=== PATIENT | female | born 1955 | race Caucasian/White ===

== ENCOUNTER 2017-10-03 18:01 | Inpatient (IN) ==
[~2017-10-03 18:01] MED LIST: Gadobutrol PF 7.5 MMOL/7.5 ML Vial (for RAD) IV.SIG ONE
[2017-10-03] MEDS ORDERED: Sodium Chlor 0.9% Inj 500 ML IV.SIG ONE (18:14)
[2017-10-03] MEDS ORDERED: Sod Chloride 0.9% Inj 1,000 ML IV.SIG ONE ×2 (18:20→18:50)
--- NOTE | 2017-10-03 18:26 | ED ---
HPI General Chief complaint: Syncope Stated complaint: Fall injury Time Seen by Provider: 10/03/17 18:13 History of Present Illness HPI narrative: 62-year-old female is brought to the emergency department by EMS for evaluation of syncope and fall. Per EMS report the patient was sitting in her walker at the [employer] bus stop when she suddenly fell forward onto the ground landing on her forehead. She is complaining of neck pain and arm pain. The patient has a history of cognitive impairment/MR and is a poor historian. The patient does state that she was feeling dizzy which is why she fell. Per EMS report when they arrived on scene patient's blood pressure was 68/47. She has received 300 cc normal saline bolus. Patient keeps saying she feels "sleepy." Patient has no other complaints at this time. Related Data Home Medications Medication Instructions Recorded Confirmed Unable to Obtain Home Meds 10/03/17 10/03/17 Allergies Allergy/AdvReac Type Severity Reaction Status Date / Time No Known Allergies Allergy Uncoded 09/28/15 11:41 Review of Systems ROS Unobtainable ROS Unobtainable: unobtainable due to mental condition (patient has cognitive impairment/MR) PMFSH Medical History Medical History Medical history unknown (Acute) Surgical history unknown (Acute) Social History Social History Smoking Status: Never smoker How Often Do You Have a Drink Containing Alcohol: Unable to Obtain Recent Travel in [place] within the Last 8 Weeks: No Recent Out of Country Travel within the Last 8 Weeks: No Exam Narrative Exam Narrative: GENERAL: Well-nourished and well-developed pleasant patient in no acute distress who is nontoxic appearing. SKIN: Warm and dry. Abrasions to forehead and cheeks. HEAD: Normocephalic and atraumatic. EYES: No injection, drainage, or hyphema noted. PERRLA. EOMI. ENT: No nasal drainage noted. Oropharynx is clear, NECK: Supple and the trachea is midline. Cervical collar in place. CARDIOVASCULAR: Regular rate and rhythm. RESPIRATORY: Breath sounds are equal bilaterally with no accessory muscle use, wheezing, rhonchi, or crackles. GASTROINTESTINAL: Abdomen is soft, non-tender, and nondistended. No hepatosplenomegaly. MUSCULOSKELETAL: No obvious deformities, swelling, cyanosis, or ecchymosis is present throughout the upper and lower extremities. Patient is moving arms without difficulty, strength is intact. Patient moving her legs minimally, not lifting them up when instructed. BACK: Nontender without any obvious deformities, bony point tenderness, or crepitus noted throughout the thoracic and lumbar vertebrae. NEUROLOGICAL: Awake, alert, and oriented to person and place. Speech is slow and stilted. Cranial nerves are grossly intact. Procedures Hemaprompt Stool Procedural Steps Taken: specimen placed in appropriate test area, developer placed on specimen and control areas and controls appropriately positive and negative Hemaprompt Stool Result: positive Course Initial Documented Vital Signs Temperature 98.2 F 10/03/17 18:08 Pulse Rate 62 10/03/17 18:08 Respiratory Rate 20 10/03/17 18:08 Blood Pressure 83/46 L 10/03/17 18:08 Pulse Oximetry 97 10/03/17 18:08 Last Documented Vital Signs Temperature 98.2 F 10/03/17 18:08 Pulse Rate 64 10/03/17 20:08 Respiratory Rate 22 10/03/17 20:08 Blood Pressure 105/63 10/03/17 20:08 Pulse Oximetry 100 10/03/17 20:08 Medical Decision Making ZIYAD Attestation ZIYAD supervised visit: Yes Attestation: I, Dr. Gaxiola, have reviewed the advance practice practitioner's documentation and am in agreement, met with the patient face to face, made the diagnosis, and the medical decision making was done by me. *My assessment and Findings: Patient seen and evaluated with PA, please see PA notes for further details. EKG did not show any significant dysrhythmias. Her blood pressure was low, IV fluids were given in the ER. Considering she had a syncopal episode, the blood pressure likely is the cause, and concern is of possible underlying UTI, sepsis, and IV antibiotics were initiated in the ER as well. Workup was initiated plan would be to admit the patient for further treatment. MDM Narrative Medical decision making narrative: 62-year-old female is brought to the emergency department by EMS for evaluation of syncope and fall. Patient is afebrile. Patient has hypotension initially with blood pressure 70s over 50s. IV access is obtained, labs were drawn and sent. Patient is placed on cardiac telemetry and pulse oximetry monitoring. Patient is given IV fluid bolus and blood pressure has improved to 90s over 60s. Head and cervical spine CT imaging has been ordered and pending. Concern for sepsis, IV antibiotics initiated. CBC shows anemia with hemoglobin 9.5, hematocrit 27.3. Troponin less than 0.02. Sodium slightly decreased 132, creatinine 1.36, GFR 39. UA negative. Hemoccult positive. Chest x-ray negative. Negative cervical spine and head CT. I called and spoke with Dr. Wilkins to regarding patient's hemoglobin and positive Hemoccult. She recommends administering 2 units of blood and initiating Protonix bolus and drip. Patient will be admitted to medicine service, Dr. Linton accepts. Lab Data Result diagrams: 10/03/17 18:28 10/03/17 18:28 Lab Results 10/03/17 10/03/17 10/03/17 Range/Units 18:28 18:28 18:28 WBC 5.2 (4.0-11.0) th/mm3 RBC 3.13 L (4.00-5.30) mil/mm3 Hgb 9.5 L (11.6-15.3) gm/dL Hct 27.3 L (35.0-46.0) % MCV 87.0 (80.0-100.0) fL MCH 30.5 (27.0-34.0) pg MCHC 35.0 (32.0-36.0) % RDW 12.7 (11.6-17.2) % Plt Count 285 (150-450) th/mm3 MPV 7.5 (7.0-11.0) fL Neut % (Auto) 53.8 (16.0-70.0) % Lymph % (Auto) 29.8 (9.0-44.0) % [place] % (Auto) 9.7 H (0.0-8.0) % Eos % (Auto) 6.0 H (0.0-4.0) % Baso % (Auto) 0.7 (0.0-2.0) % Neut # (Auto) 2.8 (1.8-7.7) th/mm3 Lymph # (Auto) 1.5 (1.0-4.8) th/mm3 [place] # (Auto) 0.5 (0.0-0.9) th/mm3 Eos # (Auto) 0.3 (0.0-0.4) th/mm3 Baso # (Auto) 0.0 (0.0-0.2) th/mm3 WBC Differential . Differential Comment Auto diff final PT (9.8-11.6) sec INR Ratio APTT (24.3-30.1) sec Sodium 132 L (136-145) meq/L Potassium 4.2 (3.5-5.1) meq/L Chloride 101 (98-107) meq/L Carbon Dioxide 22.6 (21.0-32.0) meq/L Anion Gap 8 (5-15) meq/L BUN 18 (7-18) mg/dL Creatinine 1.36 H (0.50-1.00) mg/dL Estimated GFR 39 L (>89) mL/min Random Glucose 90 (74-106) mg/dL Lactic Acid (0.4-2.0) mmol/L Calcium 8.1 L (8.5-10.1) mg/dL Total Bilirubin 0.3 (0.2-1.0) mg/dL AST 13 L (15-37) U/L ALT 19 (10-53) U/L Alkaline Phosphatase 44 L (45-117) U/L Troponin I Less than 0.02 L (0.02-0.05) ng/mL Total Protein 6.9 (6.4-8.2) g/dL Albumin 3.4 (3.4-5.0) g/dL TSH 6.920 H (0.358-3.740) uIU/mL Urine Color (Yellw/Straw) Urine Clarity (Clear) Urine pH (5.0-8.5) Ur Specific [place] (1.002-1.035) Urine Protein (Neg-Trace) mg/dL Urine Glucose (UA) (Negative) mg/dL Urine Ketones (Negative) mg/dL Urine Occult Blood (Negative) Urine Nitrate (Negative) Urine Bilirubin (Negative) Urine Urobilinogen (Less than 2) mg/dL Ur Leukocyte Esterase (Negative) Hyaline Casts (0-3) /lpf Urine Mucus (Occasional) /lpf Micro UA Comment Urine Culture Comments 10/03/17 10/03/17 10/03/17 Range/Units 18:28 18:35 18:55 WBC (4.0-11.0) th/mm3 RBC (4.00-5.30) mil/mm3 Hgb (11.6-15.3) gm/dL Hct (35.0-46.0) % MCV (80.0-100.0) fL MCH (27.0-34.0) pg MCHC (32.0-36.0) % RDW (11.6-17.2) % Plt Count (150-450) th/mm3 MPV (7.0-11.0) fL Neut % (Auto) (16.0-70.0) % Lymph % (Auto) (9.0-44.0) % [place] % (Auto) (0.0-8.0) % Eos % (Auto) (0.0-4.0) % Baso % (Auto) (0.0-2.0) % Neut # (Auto) (1.8-7.7) th/mm3 Lymph # (Auto) (1.0-4.8) th/mm3 [place] # (Auto) (0.0-0.9) th/mm3 Eos # (Auto) (0.0-0.4) th/mm3 Baso # (Auto) (0.0-0.2) th/mm3 WBC Differential Differential Comment PT 11.1 (9.8-11.6) sec INR 1.1 Ratio APTT 24.6 (24.3-30.1) sec Sodium (136-145) meq/L Potassium (3.5-5.1) meq/L Chloride (98-107) meq/L Carbon Dioxide (21.0-32.0) meq/L Anion Gap (5-15) meq/L BUN (7-18) mg/dL Creatinine (0.50-1.00) mg/dL Estimated GFR (>89) mL/min Random Glucose (74-106) mg/dL Lactic Acid 1.0 (0.4-2.0) mmol/L Calcium (8.5-10.1) mg/dL Total Bilirubin (0.2-1.0) mg/dL AST (15-37) U/L ALT (10-53) U/L Alkaline Phosphatase (45-117) U/L Troponin I (0.02-0.05) ng/mL Total Protein (6.4-8.2) g/dL Albumin (3.4-5.0) g/dL TSH (0.358-3.740) uIU/mL Urine Color Yellow (Yellw/Straw) Urine Clarity Clear (Clear) Urine pH 5.0 (5.0-8.5) Ur Specific [place] 1.014 (1.002-1.035) Urine Protein Negative (Neg-Trace) mg/dL Urine Glucose (UA) Negative (Negative) mg/dL Urine Ketones Negative (Negative) mg/dL Urine Occult Blood Negative (Negative) Urine Nitrate Negative (Negative) Urine Bilirubin Negative (Negative) Urine Urobilinogen Less than 2 (Less than 2) mg/dL Ur Leukocyte Esterase Negative (Negative) Hyaline Casts 7 (0-3) /lpf Urine Mucus Few H (Occasional) /lpf Micro UA Comment Culture not ind Urine Culture Comments Culture not ind Imaging Data Attestation: I personally reviewed and interpreted this imaging study as follows : Radiologist's impression: Cervical Spine CT 10/03/17 18:13 CONCLUSION: 1. No fracture or acute appearing subluxation seen of the cervical spine. 2. Severe chronic degenerative disc changes at C5/C6 with grade 1 retrolisthesis and mild to moderate spinal stenosis. 3. Generalized uncovertebral and facet osteoarthritis as described. Head CT 10/03/17 18:13 CONCLUSION: No acute intracranial abnormality. . Chest X-Ray 10/03/17 18:14 CONCLUSION: No acute cardiopulmonary disease demonstrated. Discharge Plan Discharge Disposition Patient Disposition: 30 Still Patient Discharge Condition Condition: Stable Discharge Details Diagnosis: Syncope, GI (gastrointestinal bleed) Physicians Team ED Provider: Cole Gaxiola ED Midlevel Provider: Junie Mott Primary Care Provider: UNKNOWN, Rxs /Orders / Referrals /Forms Prescriptions: No Action Unable to Obtain Home Meds RF: 0 Status ED Status: With Doctor
--- NOTE | 2017-10-03 18:36 | XR ---
EXAM DATE: 10/03/2017 6:33 PM EDT AGE/SEX: 62 years / Female INDICATIONS: Trauma. Post fall. CLINICAL DATA: This is the patient's initial encounter. Patient reports that signs and symptoms have been present for 1 day and indicates a pain score of Nonresponsive. MEDICAL/SURGICAL HISTORY: Non-responsive. Non-responsive. COMPARISON: [facility], CHEST PA & LAT, 05/10/2015. . FINDINGS: A single AP view of the chest demonstrates the lungs to be symmetrically aerated without evidence of mass, infiltrate or effusion. The cardiomediastinal contours are unremarkable. Osseous structures a re intact. CONCLUSION: No acute cardiopulmonary disease demonstrated. Electronically signed by: Charlie Leavitt MD 10/03/2017 6:34 PM EDT
[2017-10-03 18:50] LABS: Baso % (Auto) 0.7 % (0.0-2.0); Eos # (Auto) 0.3 th/mm3 (0.0-0.4); Hematocrit 27.3 % (35.0-46.0); Hemoglobin 9.5 gm/dL (11.6-15.3); Lymph # (Auto) 1.5 th/mm3 (1.0-4.8); Lymph % (Auto) 29.8 % (9.0-44.0); Mean Corpuscular Hemoglobin 30.5 pg (27.0-34.0); Mean Platelet Volume 7.5 fL (7.0-11.0); Mono # (Auto) 0.5 th/mm3 (0.0-0.9); Mono % (Auto) 9.7 % (0.0-8.0); Neut # (Auto) 2.8 th/mm3 (1.8-7.7); Neut % (Auto) 53.8 % (16.0-70.0); Platelet Count 285 th/mm3 (150-450); Red Blood Count 3.13 mil/mm3 (4.00-5.30); Red Cell Distribution Width 12.7 % (11.6-17.2); White Blood Count 5.2 th/mm3 (4.0-11.0)
[2017-10-03 19:04] LABS: Activated Partial Thrombo Time 24.6 sec (24.3-30.1); INR 1.1 Ratio; Prothrombin Time 11.1 sec (9.8-11.6)
[2017-10-03 19:14] LABS: Bilirubin,Urine Negative (Negative); Clarity,Urine Clear (Clear); Color,Urine Yellow (Yellw/Straw); Glucose,Urine (UA) Negative (Negative); Hyaline Casts,Urine 7 /lpf (0-3); Leukocyte Esterase,Urine Negative (Negative); Mucus,Urine Few /lpf (Occasional); Nitrite,Urine Negative (Negative); Specific Gravity,Urine 1.014 (1.002-1.035)
[2017-10-03 19:29] LABS: Alanine Aminotransferase 19 U/L (10-53); Albumin 3.4 g/dL (3.4-5.0); Anion Gap 8 meq/L (5-15); Aspartate Aminotransferase 13 U/L (15-37); Blood Urea Nitrogen 18 mg/dL (7-18); Calcium 8.1 mg/dL (8.5-10.1); Carbon Dioxide 22.6 meq/L (21.0-32.0); Chloride 101 meq/L (98-107); Glomerular Filtration Rate 39 mL/min (>89); Glucose,Random 90 mg/dL (74-106); Potassium 4.2 meq/L (3.5-5.1); Sodium 132 meq/L (136-145)
[2017-10-03 19:33] LABS: Alkaline Phosphatase 44 U/L (45-117); Total Protein 6.9 g/dL (6.4-8.2)
--- NOTE | 2017-10-03 19:35 | CT ---
EXAM DATE: 10/03/2017 7:26 PM EDT AGE/SEX: 62 years / Female INDICATIONS: Syncopal episode, fell forward and hit face. CLINICAL DATA: This is the patient's initial encounter. Patient reports that signs and symptoms have been present for 1 day and indicates a pain score of 8/10. MEDICAL/SURGICAL HISTORY: None. None. RADIATION DOSE: 23.76 CTDI (mGy) COMPARISON: No prior exams available for comparison. TECHNIQUE: Contiguous axial images were obtained using helical multirow detector technique. The vol umetric data was post-processed with multiplanar reconstruction in oblique axial, sagittal, and coron al planes. Using automated exposure control and adjustment of the mA and/or kV according to patient s ize, radiation dose was kept as low as reasonably achievable to obtain optimal diagnostic quality pasha ges. DICOM format image data is available electronically for review and comparison. FINDINGS: No fracture or acute appearing malalignment seen of the cervical spine. Vertebral bodies have normal height. Severe disc space narrowing and chronic endplate changes as well as 2 to 3 mm of degenerative retroli sthesis seen at C5/C6. There is associated mild to moderate spinal stenosis. Generally only mild disc space narrowing at the other levels. There is severe bilateral facet osteoar thritis at C2/C3 and generally mild to moderate uncovertebral and facet osteoarthritis at the other l evels. CONCLUSION: 1. No fracture or acute appearing subluxation seen of the cervical spine. 2. Severe chronic degenerative disc changes at C5/C6 with grade 1 retrolisthesis and mild to moderat e spinal stenosis. 3. Generalized uncovertebral and facet osteoarthritis as described. Electronically signed by: Charlie Leavitt MD 10/03/2017 7:34 PM EDT
--- NOTE | 2017-10-03 19:36 | CT ---
EXAM DATE: 10/03/2017 7:23 PM EDT AGE/SEX: 62 years / Female INDICATIONS: Syncopal episode, fell forward and hit face. CLINICAL DATA: This is the patient's initial encounter. Patient reports that signs and symptoms have been present for 1 day and indicates a pain score of 8/10. MEDICAL/SURGICAL HISTORY: None. None. RADIATION DOSE: 44.80 CTDI (mGy) COMPARISON: No prior exams available for comparison. TECHNIQUE: CT of the head without contrast. Using automated exposure control and adjustment of the mA and/or kV according to patient size, radiation dose was kept as low as reasonably achievable to ob tain optimal diagnostic quality images. DICOM format image data is available electronically for revi ew and comparison. FINDINGS: Cerebrum: The ventricles are normal for age. No evidence of midline shift, mass lesion, hemorrhage or acute infarction. No extraaxial fluid collections are seen. Posterior Fossa: The cerebellum and brainstem are intact. The 4th ventricle is midline. The cerebe llopontine angle is unremarkable. Extracranial: The visualized portion of the orbits is intact. Skull: The calvaria is intact. No evidence of skull fracture. CONCLUSION: No acute intracranial abnormality. . Electronically signed by: Charlie Leavitt MD 10/03/2017 7:35 PM EDT
[2017-10-03] MEDS ORDERED: Pantoprazole Inj 40 MG Vial IV.PUSH ONE (20:05)
[2017-10-03] MEDS ORDERED: Acetaminophen 325 MG Tablet PO PRN (20:24)
[2017-10-03] MEDS ORDERED: Bisacodyl 10 MG Supp RECTAL PRN (20:24)
--- NOTE | 2017-10-03 20:27 | P.HPIM ---
History of Present Illness Primary Care Physician: UNKNOWN History of Present Illness: This is a 62-year-old female with unknown PMH who was brought to the ER by EMS after syncopal event. Pt has h/o Mental Retardation w/ Cognitive Impairment, difficult to obtain history from patient. Per report, pt is wheelchair bound, was waiting at bus stop when she fell out of her wheelchair onto the pavement, presumed LOC. She is able to tell me that she had dizziness prior to event. EMS noted BP 68/47, s/p IVF w/ improvement. On arrival, BP 75/42, HR 61, O2 sat 95% on RA, Afebrile. S/p IVF w/ repeat BP 105/63, HR 64. Hemoglobin 9.5, no previous labs for comparison. INR 1.1. Creatinine 1.36, no previous labs for comparison. Troponin negative. UA negative for UTI. CT Head with no acute findings. CT C-spine with no acute fracture, severe chronic degenerative changes. CXR negative. On exam, Hemoccult +. Dr. Wilkins consulted, recommended transfusion of 2u pRBC as pt's baseline Hgb unknown. - Diagnosis (1) Syncope (2) Hypotension (3) GI bleed (4) Renal insufficiency (5) MR (mental retardation) Review of Systems PAST FAMILY HISTORY: Unable to obtain. All other systems reviewed negative except as stated in HPI [facility] - History History Provided By: Wind Technician / EMT - Medical History Medical History: Medical History (Last Updated 10/03/17 @ 18:13 by David Rm RN) Medical history unknown Surgical history unknown - Tobacco History Smoking Status: Never smoker - Alcohol History How Often Do You Have a Drink Containing Alcohol: Unable to Obtain - Travel History Recent Travel in the [place] Within the Last 8 Weeks: No Recent Travel Out of the Country Within the Last 8 Weeks: No - Immunization History Tetanus Immunization: Unable to Assess Hx Influenza Vaccine This Season: Unable to Assess Medications and Allergies Active Medications: Active Medications Acetaminophen (Tylenol) 650 mg PO Q4H PRN PRN Reason: Temp > 100.4 Bisacodyl (Dulcolax Supp) 10 mg RECTAL DAILY PRN PRN Reason: SEVERE CONSITIPATION Pantoprazole Sodium 80 mg/ (Sodium Chloride) 100 mls @ 10 mls/hr IV.CONT CONT DEBORAH Sodium Chloride (Ns Inj) 250 mls @ 15 mls/hr IV.SIG ONCE DEBORAH Stop: 10/04/17 13:39 Sodium Chloride (Ns Flush) 2 ml IV.FLUSH PRN PRN PRN Reason: FLUSH AFTER USING IV ACCESS Allergies Allergy/AdvReac Type Severity Reaction Status Date / Time No Known Allergies Allergy Uncoded 09/28/15 11:41 Home Medications Medication Instructions Recorded Confirmed Type Unable to Obtain Home Meds 10/03/17 10/03/17 History Exam Vital signs: Vital Signs 10/03/17 18:08 10/03/17 18:20 10/03/17 18:30 Temperature 98.2 F Pulse Rate 62 61 60 Respiratory Rate 20 18 20 Blood Pressure 83/46 L 75/42 L 94/51 L Pulse Oximetry 97 95 95 10/03/17 20:08 Temperature Pulse Rate 64 Respiratory Rate 22 Blood Pressure 105/63 Pulse Oximetry 100 Intake & Output 10/03/17 10/03/17 10/04/17 06:59 18:59 06:59 Weight 83.915 kg Narrative: PE: GENERAL: Middle-aged white female in no acute distress. Difficult to understand but answering questions appropriately. HEENT: PERRLA, EOMI. No scleral icterus or conjunctival pallor. No lid lag or facial droop. Abrasion to forehead CARDIOVASCULAR: Regular rate and rhythm. No obvious murmurs to auscultation. No chest tenderness to palpation. RESPIRATORY: No obvious rhonchi or wheezing. Clear to auscultation. Breath sounds equal bilaterally. GASTROINTESTINAL: Abdomen soft, non-tender, nondistended. BS normal. MUSCULOSKELETAL: Extremities without clubbing, cyanosis, or edema. No obvious deformities. NEUROLOGICAL: Awake, alert, cognitive impairment but answering questions appropriately. No focal neurologic deficits. Moving both upper and lower extremities spontaneously. Results - Labs CBC & Chem 7: 10/03/17 18:28 10/03/17 18:28 Labs: Short CBC 10/03/17 Range/Units 18:28 WBC 5.2 (4.0-11.0) th/mm3 Hgb 9.5 L (11.6-15.3) gm/dL Hct 27.3 L (35.0-46.0) % Plt Count 285 (150-450) th/mm3 BMP 10/03/17 18:28 Sodium 132 L Potassium 4.2 Chloride 101 Carbon Dioxide 22.6 BUN 18 Creatinine 1.36 H Calcium 8.1 L Cardiac Enzymes 10/03/17 Range/Units 18:28 Troponin I Less than 0.02 L (0.02-0.05) ng/mL Liver Function 10/03/17 Range/Units 18:28 Total Bilirubin 0.3 (0.2-1.0) mg/dL AST 13 L (15-37) U/L ALT 19 (10-53) U/L Alkaline Phosphatase 44 L (45-117) U/L Albumin 3.4 (3.4-5.0) g/dL Urine 10/03/17 Range/Units 18:35 Urine Color Yellow (Yellw/Straw) Urine Clarity Clear (Clear) Urine pH 5.0 (5.0-8.5) Ur Specific [place] 1.014 (1.002-1.035) Urine Protein Negative (Neg-Trace) mg/dL Urine Glucose (UA) Negative (Negative) mg/dL - Imaging Impressions Cervical Spine CT 10/03/17 18:13 CONCLUSION: 1. No fracture or acute appearing subluxation seen of the cervical spine. 2. Severe chronic degenerative disc changes at C5/C6 with grade 1 retrolisthesis and mild to moderate spinal stenosis. 3. Generalized uncovertebral and facet osteoarthritis as described. Head CT 10/03/17 18:13 CONCLUSION: No acute intracranial abnormality. . Chest X-Ray 10/03/17 18:14 CONCLUSION: No acute cardiopulmonary disease demonstrated. Caprini VTE Risk Assessment Caprini VTE Risk Assessment: No/Low Risk (score <= 1) VTE Pharmacological Exception Reason: Active bleeding Caprini Risk Assessment Model: Point Value = 1 Point Value = 2 Point Value = 3 Point Value = 5 Age 41-60 Minor surgery BMI > 25 kg/m2 Swollen legs Varicose veins or History of unexplained or recurrent spontaneous Oral contraceptives or hormone replacement Sepsis (< 1 month) Serious lung disease, including pneumonia (< 1 month) Abnormal pulmonary function Acute myocardial infarction Congestive heart failure (< 1 month) History of inflammatory bowel disease Medical patient at bed rest Age 61-74 Arthroscopic surgery Major open surgery (> 45 min) Laparoscopic surgery (> 45 min) Malignancy Confined to bed (> 72 hours) Immobilizing plaster cast Central venous access Age >= 75 History of VTE Family history of VTE Factor V Leiden Prothrombin [id number] Lupus anticoagulant Anticardiolipin antibodies Elevated serum homocysteine Heparin-induced thrombocytopenia Other congenital or acquired thrombophilia Stroke (< 1 month) Elective arthroplasty Hip, pelvis, or leg fracture Acute spinal cord injury (< 1 month) Prophylaxis Regimen: Total Risk Factor Score Risk Level Prophylaxis Regimen 0-1 Low Early ambulation 2 Moderate Order ONE of the following: *Sequential Compression Device (SCD) *Heparin 5000 units SQ BID 3-4 Higher Order ONE of the following medications: *Heparin 5000 units SQ TID *Enoxaparin/Lovenox 40 mg SQ daily (WT < 150 kg, CrCl > 30 mL/min) *Enoxaparin/Lovenox 30 mg SQ daily (WT < 150 kg, CrCl > 10-29 mL/min) *Enoxaparin/Lovenox 30 mg SQ BID (WT < 150 kg, CrCl > 30 mL/min) AND/OR *Sequential Compression Device (SCD) 5 or more Highest Order ONE of the following medications: *Heparin 5000 units SQ TID (Preferred with Epidurals) *Enoxaparin/Lovenox 40 mg SQ daily (WT < 150 kg, CrCl > 30 mL/min) *Enoxaparin/Lovenox 30 mg SQ daily (WT < 150 kg, CrCl > 10-29 mL/min) *Enoxaparin/Lovenox 30 mg SQ BID (WT < 150 kg, CrCl > 30 mL/min) AND *Sequential Compression Device (SCD) Assessment and Plan - Assessment (1) Syncope Code(s): R55 - Syncope and collapse Status: Acute (2) Hypotension Code(s): I95.9 - Hypotension, unspecified Status: Acute (3) GI bleed Code(s): K92.2 - Gastrointestinal hemorrhage, unspecified Status: Acute (4) Renal insufficiency Code(s): N28.9 - Disorder of kidney and ureter, unspecified Status: Acute (5) MR (mental retardation) Code(s): F79 - Unspecified intellectual disabilities Status: Acute - Plan A/P: 1. Syncope: Likely due to hypotension, CT Head/C-Spine w/ no acute findings, images reviewed. Admit for Observation, telemetry for possible arrhythmia, check serial cardiac enzymes for possible ischemia. Check Echo to eval for valvular abnormality/cardiomyopathy. IVF for hydration, monitor I/O, repeat labs in am. 2. Hypotension: Transient, secondary to hypovolemia/dehydration compounded by anemia w/ GI Bleed. S/p IVF w/ improvement, monitor BP closely, continue IVF for hydration, monitor I/O. 3. GI Bleed: Hemoccult +, Hgb 9.5, baseline unknown, Dr. Wilkins consulted, recommended 2u pRBC transfusion, repeat Hgb/Hct after transfusion, monitor closely for bleeding. Protonix IV. 4. Renal Insufficiency: Creatinine 1.36, no previous labs for comparison, baseline unknown. U/a negative for UTI. IVF for hydration, repeat labs in am. 5. Mental Retardation: w/ Cognitive Impairment, appears to be at baseline, speech difficult to understand however pt answering questions appropriately. 6. DVT Prophylaxis: Pharmacologic contraindication in light of GI Bleed 7. Social work for d/c planning as needed 8. Case discussed w/ ER physician at length, labs/records/imaging reviewed by me. (1) Syncope Qualifiers: Syncope type: unspecified Qualified Code(s): R55 - Syncope and collapse
[2017-10-03] MEDS ORDERED: Sodium Chlor 0.9% Inj 250 ML IV.SIG SCH (21:00)
[2017-10-03] MEDS: Pantoprazole Inj 80 MG in Sodium Chlor 0.9% Inj 100 ML IV.CONT SCH (21:35)
[2017-10-03] MEDS: Senna/Docusate Sodium 8.6/50 MG Tablet PO SCH (22:14)
[2017-10-03] MEDS: Sod Chloride 0.9% Inj 1,000 ML IV.CONT SCH (22:16)
--- NOTE | 2017-10-04 00:23 | XR ---
EXAM DATE: 10/04/2017 12:02 AM EDT AGE/SEX: 62 years / Female INDICATIONS: Trauma due to fall. CLINICAL DATA: This is the patient's initial encounter. Patient reports that signs and symptoms have been present for 1 day and indicates a pain score of Nonresponsive. MEDICAL/SURGICAL HISTORY: Non-responsive. Non-responsive. COMPARISON: [facility], XR KNEE COMPLETE, RIGHT, 09/11/2017. . FINDINGS: 4 views of the right knee demonstrate no fracture or dislocation. There are tricompartmental osteophy ken. No joint effusion is identified. No soft tissue abnormality or radiopaque foreign body is seen. CONCLUSION: Mild tricompartmental osteoarthritis. No acute abnormality is identified. Electronically signed by: Charlie Lopez MD 10/04/2017 12:21 AM EDT
[2017-10-04] MEDS: Morphine Inj 4 MG/ML Vial IV.PUSH PRN (05:47)
[2017-10-04] MEDS: Sod Chloride 0.9% Inj 1,000 ML IV.CONT SCH ×2 (06:09→16:37)
[2017-10-04] MEDS: Pantoprazole Inj 40 MG Vial IV.PUSH SCH ×3 (06:16→21:55)
--- NOTE | 2017-10-04 08:19 | ECG ---
Date Performed: 10/03/2017 Time Performed: 18:19:32 PTAGE: 62 years EKG: Sinus rhythm NORMAL ECG NO PREVIOUS TRACING DOCTOR: Caden Kang Interpretating Date/Time 10/04/2017 08:18:46
--- NOTE | 2017-10-04 08:50 | P.CONGI ---
History of Present Illness Consult date: 10/04/17 Chief complaint: syncope, GI bleed History of Present Illness: This is a 62-year-old female with unknown PMH who was brought to the ER by EMS after syncopal event. Patient has Cognitive Impairment, difficult to obtain history from patient, but able to answer simple questions with yes and no. Per report, pt is wheelchair bound, was waiting at bus stop when she fell out of her wheelchair onto the pavement, presumed LOC. On arrival she was hypotensive, hgb is 9.5, base line unknown, was found Hemoccult +. CT Head with no acute findings. CT C-spine with no acute fracture, severe chronic degenerative changes. CXR negative. Currently receiving blood, 2u pRBC ordered , PPI. Pt states she had colonoscopy 2 yrs ago. Endorses wt loss and dysphagia due to poor dentition. She denies nausea, vomiting, hematemesis, abd pain, hematochezia, melena, diarrhea or constipation. <Terry Goodwin - Last Filed: 10/04/17 08:38> Review of Systems All other systems reviewed negative except as stated in HPI <Terry Goodwin - Last Filed: 10/04/17 08:38> PMFSH - History History Provided By: Textile Artist / EMT - Medical History Medical History: Medical History (Last Updated 10/03/17 @ 18:13 by David Rm RN) Medical history unknown Surgical history unknown - Tobacco History Second Hand Smoke Exposure: No Tobacco Use In Past 30 Days: No Smoking Status: Never smoker - Alcohol History How Often Do You Have a Drink Containing Alcohol: Never - Substance Use History Substance History: No History of Abuse - Travel History Recent Travel in the [place] Within the Last 8 Weeks: No Recent Travel Out of the Country Within the Last 8 Weeks: No - Immunization History Tetanus Immunization: Unable to Assess Hx Influenza Vaccine This Season: Unable to Assess <Terry Goodwin - Last Filed: 10/04/17 08:38> - Medical History Medical History: Medical History (Last Updated 10/03/17 @ 18:13 by David Rm RN) Medical history unknown Surgical history unknown <Venessa Wilkins - Last Filed: 10/04/17 16:28> Medications and Allergies Active Medications: Active Medications Acetaminophen (Tylenol) 650 mg PO Q4H PRN PRN Reason: Temp > 100.4 Al Hydroxide/Mg Hydroxide (Milk Of Magnesia Liq) 30 ml PO Q12H PRN PRN Reason: Mild Constipation Bisacodyl (Dulcolax Supp) 10 mg RECTAL DAILY PRN PRN Reason: SEVERE CONSITIPATION Pantoprazole Sodium 80 mg/ (Sodium Chloride) 100 mls @ 10 mls/hr IV.CONT CONT [facility] Last Admin: 10/03/17 21:35 Dose: 10 mls/hr Sodium Chloride (Ns Inj) 250 mls @ 15 mls/hr IV.SIG ONCE [facility] Stop: 10/04/17 13:39 Last Admin: 10/04/17 06:16 Dose: 15 mls/hr Sodium Chloride (Ns Inj) 1,000 mls @ 100 mls/hr IV.CONT .Q10H [facility] Last Admin: 10/04/17 06:09 Dose: 100 mls/hr Lactulose (Lactulose Liq) 30 ml PO DAILY PRN PRN Reason: SEVERE CONSITIPATION Morphine Sulfate (Morphine Inj) 2 mg IV.PUSH Q3H PRN PRN Reason: PAIN SCALE 6 TO 10 Last Admin: 10/04/17 05:47 Dose: 2 mg Ondansetron HCl (Zofran Inj) 4 mg IV.PUSH Q6H PRN PRN Reason: NAUSEA OR VOMITING Pantoprazole Sodium (Protonix Inj) 40 mg IV.PUSH Q12H [facility] Last Admin: 10/04/17 06:16 Dose: Not Given Senna/Docusate Sodium (Crsisy-Colace) 1 tab PO BID [facility] Last Admin: 10/03/17 22:14 Dose: Not Given Sennosides (Senokot) 17.2 mg PO Q12H PRN PRN Reason: Moderate Constipation Sodium Chloride (Ns Flush) 2 ml IV.FLUSH PRN PRN PRN Reason: FLUSH AFTER USING IV ACCESS Temazepam (Restoril) 15 mg PO HS PRN PRN Reason: INSOMNIA <Terry Goodwin - Last Filed: 10/04/17 08:38> Active Medications: Active Medications Acetaminophen (Tylenol) 650 mg PO Q4H PRN PRN Reason: Temp > 100.4 Al Hydroxide/Mg Hydroxide (Milk Of Magnesia Liq) 30 ml PO Q12H PRN PRN Reason: Mild Constipation Bisacodyl (Dulcolax Supp) 10 mg RECTAL DAILY PRN PRN Reason: SEVERE CONSITIPATION Pantoprazole Sodium 80 mg/ (Sodium Chloride) 100 mls @ 10 mls/hr IV.CONT CONT [facility] Last Admin: 10/04/17 10:51 Dose: 10 mls/hr Sodium Chloride (Ns Inj) 1,000 mls @ 100 mls/hr IV.CONT .Q10H [facility] Last Infusion: 10/04/17 15:55 Dose: Infused Lactulose (Lactulose Liq) 30 ml PO DAILY PRN PRN Reason: SEVERE CONSITIPATION Morphine Sulfate (Morphine Inj) 2 mg IV.PUSH Q3H PRN PRN Reason: PAIN SCALE 6 TO 10 Last Admin: 10/04/17 05:47 Dose: 2 mg Ondansetron HCl (Zofran Inj) 4 mg IV.PUSH Q6H PRN PRN Reason: NAUSEA OR VOMITING Pantoprazole Sodium (Protonix Inj) 40 mg IV.PUSH Q12H [facility] Last Admin: 10/04/17 08:53 Dose: 40 mg Polyethylene Glycol/Electrolytes (Colyte Liq) 4,000 ml PO ONCE ONE Stop: 10/05/17 16:01 Senna/Docusate Sodium (Crissy-Colace) 1 tab PO BID [facility] Last Admin: 10/04/17 08:54 Dose: 1 tab Sennosides (Senokot) 17.2 mg PO Q12H PRN PRN Reason: Moderate Constipation Sodium Chloride (Ns Flush) 2 ml IV.FLUSH PRN PRN PRN Reason: FLUSH AFTER USING IV ACCESS Temazepam (Restoril) 15 mg PO HS PRN PRN Reason: INSOMNIA <Venessa Wilkins - Last Filed: 10/04/17 16:28> Allergies Allergy/AdvReac Type Severity Reaction Status Date / Time No Known Allergies Allergy Uncoded 09/28/15 11:41 Home Medications Medication Instructions Recorded Confirmed Type amlodipine 2.5 mg PO DAILY 10/04/17 10/04/17 History atorvastatin 20 mg PO DAILY 10/04/17 10/04/17 History diclofenac sodium 50 mg PO BID 10/04/17 10/04/17 History enalapril maleate 20 mg PO DAILY 10/04/17 10/04/17 History hydroxyzine HCl 25 mg PO DAILY 10/04/17 10/04/17 History meloxicam 15 mg PO DAILY 10/04/17 10/04/17 History Exam Vital signs: Vital Signs 10/03/17 18:08 10/03/17 18:20 10/03/17 18:30 Temperature 98.2 F Pulse Rate 62 61 60 Respiratory Rate 20 18 20 Blood Pressure 83/46 L 75/42 L 94/51 L Pulse Oximetry 97 95 95 10/03/17 20:00 10/03/17 20:08 10/03/17 22:35 Temperature 98.4 F Pulse Rate 64 62 Respiratory Rate 22 18 Blood Pressure 105/63 124/59 L Pulse Oximetry 98 100 99 10/03/17 23:33 10/04/17 03:10 10/04/17 03:32 Temperature 97.8 F 97.9 F Pulse Rate 57 L 61 61 Respiratory Rate 18 18 18 Blood Pressure 153/71 H 114/62 115/57 L Pulse Oximetry 100 98 10/04/17 07:03 10/04/17 07:20 10/04/17 08:00 Temperature 98.1 F 97.6 F 97.8 F Pulse Rate 64 59 L 63 Respiratory Rate 18 16 16 Blood Pressure 113/59 L 112/58 L Pulse Oximetry 96 Intake & Output 10/03/17 10/04/17 10/04/17 18:59 06:59 18:59 Intake Total 3000 / 3000 0 / 0 Output Total 250 / 250 Balance 2750 / 2750 0 / 0 Weight 83.915 kg Intake: IV 2600 / 2600 Maxipime Inj 1,000 MG In NS Inj 100 / 100 100 ML @ 200 mls/hr IV.SIG ONCE ONE Rx#:[id number] NS Inj 1,000 ML @ Wide Open IV. 1999 / 1999 SIG BOLUS ONE Rx#:[id number] NS Inj 500 ML @ Wide Open IV. 500 / 500 SIG BOLUS ONE Rx#:[id number] Intake (Blood Product) Amt 400 / 400 0 / 0 Rbc As-3 Leukoreduced Unit 0 / 0 [id number] Rbc As-3 Leukoreduced Unit 400 / 400 [id number] Output: Urine 250 / 250 - Constitutional no acute distress - Routine HEENT Exam Head: Present: normocephalic, abrasion - Routine Neck Exam Present: supple - Routine Respiratory Exam Present: CTA bilaterally - Routine Cardiovascular Exam Present: RRR - Routine Abdominal Exam Present: soft, normoactive bowel sounds. Absent: tenderness, distended - Routine Extremities Exam Absent: edema - Routine Skin Exam Present: intact, dry. Absent: jaundice - Routine Neurological Exam Present: alert <Terry Goodwin - Last Filed: 10/04/17 08:38> Vital signs: Vital Signs 10/03/17 18:08 10/03/17 18:20 10/03/17 18:30 Temperature 98.2 F Pulse Rate 62 61 60 Respiratory Rate 20 18 20 Blood Pressure 83/46 L 75/42 L 94/51 L Pulse Oximetry 97 95 95 10/03/17 20:00 10/03/17 20:08 10/03/17 22:35 Temperature 98.4 F Pulse Rate 64 62 Respiratory Rate 22 18 Blood Pressure 105/63 124/59 L Pulse Oximetry 98 100 99 10/03/17 23:33 10/04/17 03:10 10/04/17 03:32 Temperature 97.8 F 97.9 F Pulse Rate 57 L 61 61 Respiratory Rate 18 18 18 Blood Pressure 153/71 H 114/62 115/57 L Pulse Oximetry 100 98 10/04/17 07:00 10/04/17 07:03 10/04/17 07:20 Temperature 98.1 F 97.6 F Pulse Rate 64 64 59 L Respiratory Rate 18 16 Blood Pressure 113/59 L Pulse Oximetry 10/04/17 08:00 10/04/17 08:58 10/04/17 09:49 Temperature 97.8 F 98.1 F Pulse Rate 63 64 Respiratory Rate 16 16 Blood Pressure 112/58 L 117/57 L Pulse Oximetry 98 98 10/04/17 12:00 Temperature 98.6 F Pulse Rate 62 Respiratory Rate 16 Blood Pressure 119/59 L Pulse Oximetry 98 Intake & Output 10/03/17 10/04/17 10/04/17 18:59 06:59 18:59 Intake Total 3000 / 3000 1500 / 1500 Output Total 250 / 250 Balance 2750 / 2750 1500 / 1500 Weight 83.915 kg Intake: IV 2600 / 2600 1100 / 1100 Protonix Inj 80 MG In NS Inj 100 / 100 100 ML @ 10 mls/hr IV.CONT CONT [facility] Rx#:[id number] NS Inj 1,000 ML @ 100 mls/hr IV 1000 / 1000 .CONT .Q10H [facility] Rx#:[id number] Maxipime Inj 1,000 MG In NS Inj 100 / 100 100 ML @ 200 mls/hr IV.SIG ONCE ONE Rx#:[id number] NS Inj 1,000 ML @ Wide Open IV. 1999 SIG BOLUS ONE Rx#:[id number] NS Inj 500 ML @ Wide Open IV. 500 / 500 SIG BOLUS ONE Rx#:[id number] Other 0 / 0 Rbc As-3 Leukoreduced Unit 0 / 0 [id number] Intake (Blood Product) Amt 400 / 400 400 / 400 Rbc As-3 Leukoreduced Unit 400 / 400 [id number] Rbc As-3 Leukoreduced Unit 400 / 400 [id number] Output: Urine 250 / 250 <Venessa Wilkins - Last Filed: 10/04/17 16:28> Results - Labs CBC & Chem 7: 10/03/17 18:28 10/03/17 18:28 Labs: Laboratory Results - last 24 hr 10/03/17 10/03/17 10/03/17 18:28 18:28 18:28 WBC 5.2 RBC 3.13 L Hgb 9.5 L Hct 27.3 L MCV 87.0 MCH 30.5 MCHC 35.0 RDW 12.7 Plt Count 285 MPV 7.5 Neut % (Auto) 53.8 Lymph % (Auto) 29.8 [place] % (Auto) 9.7 H Eos % (Auto) 6.0 H Baso % (Auto) 0.7 Neut # (Auto) 2.8 Lymph # (Auto) 1.5 [place] # (Auto) 0.5 Eos # (Auto) 0.3 Baso # (Auto) 0.0 WBC Differential . Differential Comment Auto diff final PT INR APTT Sodium 132 L Potassium 4.2 Chloride 101 Carbon Dioxide 22.6 Anion Gap 8 BUN 18 Creatinine 1.36 H Estimated GFR 39 L Random Glucose 90 Lactic Acid Calcium 8.1 L Total Bilirubin 0.3 AST 13 L ALT 19 Alkaline Phosphatase 44 L Troponin I Less than 0.02 L Total Protein 6.9 Albumin 3.4 TSH 6.920 H Urine Color Urine Clarity Urine pH Ur Specific [place] Urine Protein Urine Glucose (UA) Urine Ketones Urine Occult Blood Urine Nitrate Urine Bilirubin Urine Urobilinogen Ur Leukocyte Esterase Hyaline Casts Urine Mucus Micro UA Comment Urine Culture Comments Blood Type Blood Type Recheck Antibody Screen MTS Gel Crossmatch 10/03/17 10/03/17 10/03/17 18:28 18:35 18:55 WBC RBC Hgb Hct MCV MCH MCHC RDW Plt Count MPV Neut % (Auto) Lymph % (Auto) [place] % (Auto) Eos % (Auto) Baso % (Auto) Neut # (Auto) Lymph # (Auto) [place] # (Auto) Eos # (Auto) Baso # (Auto) WBC Differential Differential Comment PT 11.1 INR 1.1 APTT 24.6 Sodium Potassium Chloride Carbon Dioxide Anion Gap BUN Creatinine Estimated GFR Random Glucose Lactic Acid 1.0 Calcium Total Bilirubin AST ALT Alkaline Phosphatase Troponin I Total Protein Albumin TSH Urine Color Yellow Urine Clarity Clear Urine pH 5.0 Ur Specific [place] 1.014 Urine Protein Negative Urine Glucose (UA) Negative Urine Ketones Negative Urine Occult Blood Negative Urine Nitrate Negative Urine Bilirubin Negative Urine Urobilinogen Less than 2 Ur Leukocyte Esterase Negative Hyaline Casts 7 Urine Mucus Few H Micro UA Comment Culture not ind Urine Culture Comments Culture not ind Blood Type Blood Type Recheck Antibody Screen MTS Gel Crossmatch 10/03/17 10/03/17 10/04/17 20:23 23:45 00:35 WBC RBC Hgb Hct MCV MCH MCHC RDW Plt Count MPV Neut % (Auto) Lymph % (Auto) [place] % (Auto) Eos % (Auto) Baso % (Auto) Neut # (Auto) Lymph # (Auto) [place] # (Auto) Eos # (Auto) Baso # (Auto) WBC Differential Differential Comment PT INR APTT Sodium Potassium Chloride Carbon Dioxide Anion Gap BUN Creatinine Estimated GFR Random Glucose Lactic Acid Calcium Total Bilirubin AST ALT Alkaline Phosphatase Troponin I Less than 0.02 L Total Protein Albumin TSH Urine Color Urine Clarity Urine pH Ur Specific [place] Urine Protein Urine Glucose (UA) Urine Ketones Urine Occult Blood Urine Nitrate Urine Bilirubin Urine Urobilinogen Ur Leukocyte Esterase Hyaline Casts Urine Mucus Micro UA Comment Urine Culture Comments Blood Type A Positive Blood Type Recheck Antibody Screen Negative MTS Gel Crossmatch See Detail - Imaging Impressions Knee X-Ray 10/03/17 00:00 CONCLUSION: Mild tricompartmental osteoarthritis. No acute abnormality is identified. Cervical Spine CT 10/03/17 18:13 CONCLUSION: 1. No fracture or acute appearing subluxation seen of the cervical spine. 2. Severe chronic degenerative disc changes at C5/C6 with grade 1 retrolisthesis and mild to moderate spinal stenosis. 3. Generalized uncovertebral and facet osteoarthritis as described. Head CT 10/03/17 18:13 CONCLUSION: No acute intracranial abnormality. . Chest X-Ray 10/03/17 18:14 CONCLUSION: No acute cardiopulmonary disease demonstrated. <Terry Goodwin - Last Filed: 10/04/17 08:38> - Labs CBC & Chem 7: 10/04/17 10:26 10/04/17 10:26 Labs: Laboratory Results - last 24 hr 10/03/17 10/03/17 10/03/17 18:28 18:28 18:28 WBC 5.2 RBC 3.13 L Hgb 9.5 L Hct 27.3 L MCV 87.0 MCH 30.5 MCHC 35.0 RDW 12.7 Plt Count 285 MPV 7.5 Neut % (Auto) 53.8 Lymph % (Auto) 29.8 [place] % (Auto) 9.7 H Eos % (Auto) 6.0 H Baso % (Auto) 0.7 Neut # (Auto) 2.8 Lymph # (Auto) 1.5 [place] # (Auto) 0.5 Eos # (Auto) 0.3 Baso # (Auto) 0.0 WBC Differential . Differential Comment Auto diff final PT INR APTT Sodium 132 L Potassium 4.2 Chloride 101 Carbon Dioxide 22.6 Anion Gap 8 BUN 18 Creatinine 1.36 H Estimated GFR 39 L Random Glucose 90 Lactic Acid Calcium 8.1 L Total Bilirubin 0.3 AST 13 L ALT 19 Alkaline Phosphatase 44 L Troponin I Less than 0.02 L Total Protein 6.9 Albumin 3.4 TSH 6.920 H Urine Color Urine Clarity Urine pH Ur Specific [place] Urine Protein Urine Glucose (UA) Urine Ketones Urine Occult Blood Urine Nitrate Urine Bilirubin Urine Urobilinogen Ur Leukocyte Esterase Hyaline Casts Urine Mucus Micro UA Comment Urine Culture Comments Blood Type Blood Type Recheck Antibody Screen MTS Gel Crossmatch 10/03/17 10/03/17 10/03/17 18:28 18:35 18:55 WBC RBC Hgb Hct MCV MCH MCHC RDW Plt Count MPV Neut % (Auto) Lymph % (Auto) [place] % (Auto) Eos % (Auto) Baso % (Auto) Neut # (Auto) Lymph # (Auto) [place] # (Auto) Eos # (Auto) Baso # (Auto) WBC Differential Differential Comment PT 11.1 INR 1.1 APTT 24.6 Sodium Potassium Chloride Carbon Dioxide Anion Gap BUN Creatinine Estimated GFR Random Glucose Lactic Acid 1.0 Calcium Total Bilirubin AST ALT Alkaline Phosphatase Troponin I Total Protein Albumin TSH Urine Color Yellow Urine Clarity Clear Urine pH 5.0 Ur Specific [place] 1.014 Urine Protein Negative Urine Glucose (UA) Negative Urine Ketones Negative Urine Occult Blood Negative Urine Nitrate Negative Urine Bilirubin Negative Urine Urobilinogen Less than 2 Ur Leukocyte Esterase Negative Hyaline Casts 7 Urine Mucus Few H Micro UA Comment Culture not ind Urine Culture Comments Culture not ind Blood Type Blood Type Recheck Antibody Screen MTS Gel Crossmatch 10/03/17 10/03/17 10/04/17 20:23 23:45 00:35 WBC RBC Hgb Hct MCV MCH MCHC RDW Plt Count MPV Neut % (Auto) Lymph % (Auto) [place] % (Auto) Eos % (Auto) Baso % (Auto) Neut # (Auto) Lymph # (Auto) [place] # (Auto) Eos # (Auto) Baso # (Auto) WBC Differential Differential Comment PT INR APTT Sodium Potassium Chloride Carbon Dioxide Anion Gap BUN Creatinine Estimated GFR Random Glucose Lactic Acid Calcium Total Bilirubin AST ALT Alkaline Phosphatase Troponin I Less than 0.02 L Total Protein Albumin TSH Urine Color Urine Clarity Urine pH Ur Specific [place] Urine Protein Urine Glucose (UA) Urine Ketones Urine Occult Blood Urine Nitrate Urine Bilirubin Urine Urobilinogen Ur Leukocyte Esterase Hyaline Casts Urine Mucus Micro UA Comment Urine Culture Comments Blood Type A Positive Blood Type Recheck Antibody Screen Negative MTS Gel Crossmatch See Detail 10/04/17 10/04/17 10:26 10:26 WBC 10.6 D RBC 4.02 Hgb 12.2 D Hct 36.1 MCV 89.7 MCH 30.4 MCHC 33.9 RDW 13.2 Plt Count 278 MPV 8.2 Neut % (Auto) 79.0 H Lymph % (Auto) 13.8 [place] % (Auto) 6.6 Eos % (Auto) 0.4 Baso % (Auto) 0.2 Neut # (Auto) 8.3 H Lymph # (Auto) 1.5 [place] # (Auto) 0.7 Eos # (Auto) 0.0 Baso # (Auto) 0.0 WBC Differential . Differential Comment Auto diff final PT INR APTT Sodium 133 L Potassium 4.3 Chloride 105 Carbon Dioxide 19.1 L Anion Gap 9 BUN 15 Creatinine 1.03 H Estimated GFR 54 L Random Glucose 107 H Lactic Acid Calcium 7.9 L Total Bilirubin 1.4 H AST 23 ALT 22 Alkaline Phosphatase 49 Troponin I Less than 0.02 L Total Protein 6.9 Albumin 3.1 L TSH Urine Color Urine Clarity Urine pH Ur Specific [place] Urine Protein Urine Glucose (UA) Urine Ketones Urine Occult Blood Urine Nitrate Urine Bilirubin Urine Urobilinogen Ur Leukocyte Esterase Hyaline Casts Urine Mucus Micro UA Comment Urine Culture Comments Blood Type Blood Type Recheck Antibody Screen MTS Gel Crossmatch - Imaging Impressions Knee X-Ray 10/03/17 00:00 CONCLUSION: Mild tricompartmental osteoarthritis. No acute abnormality is identified. Cervical Spine CT 10/03/17 18:13 CONCLUSION: 1. No fracture or acute appearing subluxation seen of the cervical spine. 2. Severe chronic degenerative disc changes at C5/C6 with grade 1 retrolisthesis and mild to moderate spinal stenosis. 3. Generalized uncovertebral and facet osteoarthritis as described. Head CT 10/03/17 18:13 CONCLUSION: No acute intracranial abnormality. . Chest X-Ray 10/03/17 18:14 CONCLUSION: No acute cardiopulmonary disease demonstrated. <Venessa Wilkins - Last Filed: 10/04/17 16:28> Assessment and Plan - Plan - GI bleed/anemia, heme (+) stools, hgb on admission 9.5, syncopal episode, symptomatic- This is a 62-year-old female with unknown PMH who was brought to the ER by EMS after syncopal event. Patient has Cognitive Impairment, difficult to obtain history from patient, but able to answer simple questions with yes and no. Per report, pt is wheelchair bound, was waiting at bus stop when she fell out of her wheelchair onto the pavement, presumed LOC. On arrival she was hypotensive, hgb is 9.5, base line unknown, was found Hemoccult +. CT Head with no acute findings. CT C-spine with no acute fracture, severe chronic degenerative changes. CXR negative. Currently receiving blood, 2u pRBC ordered , PPI. Pt states she had colonoscopy 2 yrs ago. Endorses wt loss and dysphagia due to poor dentition. She denies nausea, vomiting, hematemesis, abd pain, hematochezia, melena, diarrhea or constipation. Plan: - [facility]AN - EGD/colonoscopy on Friday - Golytely tomorrow - Clears tomorrow - NPO Friday night - Monitor hh - Transfuse as needed - Cont. ppi - Supportive care - Pt seen and examined by Dr. Wilkins and myself and this note is written on her behalf. <Terry Goodwin - Last Filed: 10/04/17 08:38> - Attending Attestation seen, examined agree with above denies any gi symptoms reviewed old records has a history of falls old hb around 9 <Venessa Wilkins - Last Filed: 10/04/17 16:28>
[2017-10-04] MEDS: Senna/Docusate Sodium 8.6/50 MG Tablet PO SCH ×2 (08:54→21:55)
--- NOTE | 2017-10-04 10:30 | P.PN ---
Subjective Interval history: Follow-up for anemia, GI bleed. Patient denies any abdominal pain or nausea/ vomiting. She states she has been tolerating oral intake. No reported bowel movement overnight or today. Denies any lightheadedness or dizziness. Denies any chest pain shortness of breath. She states she ambulates with a walker. She reportedly lives with her sister. The patient has no other medical complaints at this time. Physical Exam Vital signs: Vital Signs 10/03/17 18:08 10/03/17 18:20 10/03/17 18:30 Temperature 98.2 F Pulse Rate 62 61 60 Respiratory Rate 20 18 20 Blood Pressure 83/46 L 75/42 L 94/51 L Pulse Oximetry 97 95 95 10/03/17 20:00 10/03/17 20:08 10/03/17 22:35 Temperature 98.4 F Pulse Rate 64 62 Respiratory Rate 22 18 Blood Pressure 105/63 124/59 L Pulse Oximetry 98 100 99 10/03/17 23:33 10/04/17 03:10 10/04/17 03:32 Temperature 97.8 F 97.9 F Pulse Rate 57 L 61 61 Respiratory Rate 18 18 18 Blood Pressure 153/71 H 114/62 115/57 L Pulse Oximetry 100 98 10/04/17 07:03 10/04/17 07:20 10/04/17 08:00 Temperature 98.1 F 97.6 F 97.8 F Pulse Rate 64 59 L 63 Respiratory Rate 18 16 16 Blood Pressure 113/59 L 112/58 L Pulse Oximetry 96 10/04/17 08:58 10/04/17 09:49 Temperature 98.1 F Pulse Rate 64 Respiratory Rate 16 Blood Pressure 117/57 L Pulse Oximetry 98 Intake & Output 10/03/17 10/04/17 10/04/17 18:59 06:59 18:59 Intake Total 3000 / 3000 500 / 500 Output Total 250 / 250 Balance 2750 / 2750 500 / 500 Weight 83.915 kg Intake: IV 2600 / 2600 100 / 100 Protonix Inj 80 MG In NS Inj 100 / 100 100 ML @ 10 mls/hr IV.CONT CONT DEBORAH Rx#:[id number] Maxipime Inj 1,000 MG In NS Inj 100 / 100 100 ML @ 200 mls/hr IV.SIG ONCE ONE Rx#:[id number] NS Inj 1,000 ML @ Wide Open IV. 1999 SIG BOLUS ONE Rx#:[id number] NS Inj 500 ML @ Wide Open IV. 500 / 500 SIG BOLUS ONE Rx#:[id number] Other 0 / 0 Rbc As-3 Leukoreduced Unit 0 / 0 [id number] Intake (Blood Product) Amt 400 / 400 400 / 400 Rbc As-3 Leukoreduced Unit 400 / 400 [id number] Rbc As-3 Leukoreduced Unit 400 / 400 [id number] Output: Urine 250 / 250 Narrative: GENERAL: Well-nourished, well-developed intellectually disabled female patient in [facility]. SKIN: Warm and dry. No rash. HEENT: Normocephalic. Atraumatic. Bilateral amblyopia. Pupils equal and round. Mucous membranes pink and moist. NECK: Supple. Trachea midline. CARDIOVASCULAR: Regular rate and rhythm. No murmur appreciated. RESPIRATORY: No accessory muscle use. Clear to auscultation. Breath sounds equal bilaterally. GASTROINTESTINAL: Abdomen soft, non-tender, nondistended. Normoactive bowel sounds x4. MUSCULOSKELETAL: No obvious deformities. Extremities without clubbing, cyanosis , or edema. NEUROLOGICAL: Awake and alert. No obvious cranial nerve deficits. Motor grossly within normal limits. Moving all extremities spontaneously. Normal speech. - Urinary Catheter Management Straight Cath placed during this visit: yes Reason for continuing: Not indwelling catheter Insertion date: 10/03/17 Insertion time: 18:35 Results - Labs CBC & Chem 7: 10/04/17 10:26 10/04/17 10:26 Laboratory Results - last 24 hr 10/03/17 10/03/17 10/03/17 18:28 18:28 18:28 WBC 5.2 RBC 3.13 L Hgb 9.5 L Hct 27.3 L MCV 87.0 MCH 30.5 MCHC 35.0 RDW 12.7 Plt Count 285 MPV 7.5 Neut % (Auto) 53.8 Lymph % (Auto) 29.8 Dare % (Auto) 9.7 H Eos % (Auto) 6.0 H Baso % (Auto) 0.7 Neut # (Auto) 2.8 Lymph # (Auto) 1.5 Dare # (Auto) 0.5 Eos # (Auto) 0.3 Baso # (Auto) 0.0 WBC Differential . Differential Comment Auto diff final PT INR APTT Sodium 132 L Potassium 4.2 Chloride 101 Carbon Dioxide 22.6 Anion Gap 8 BUN 18 Creatinine 1.36 H Estimated GFR 39 L Random Glucose 90 Lactic Acid Calcium 8.1 L Total Bilirubin 0.3 AST 13 L ALT 19 Alkaline Phosphatase 44 L Troponin I Less than 0.02 L Total Protein 6.9 Albumin 3.4 TSH 6.920 H Urine Color Urine Clarity Urine pH Ur Specific [place] Urine Protein Urine Glucose (UA) Urine Ketones Urine Occult Blood Urine Nitrate Urine Bilirubin Urine Urobilinogen Ur Leukocyte Esterase Hyaline Casts Urine Mucus Micro UA Comment Urine Culture Comments Blood Type Blood Type Recheck Antibody Screen MTS Gel Crossmatch 10/03/17 10/03/17 10/03/17 18:28 18:35 18:55 WBC RBC Hgb Hct MCV MCH MCHC RDW Plt Count MPV Neut % (Auto) Lymph % (Auto) [place] % (Auto) Eos % (Auto) Baso % (Auto) Neut # (Auto) Lymph # (Auto) Dare # (Auto) Eos # (Auto) Baso # (Auto) WBC Differential Differential Comment PT 11.1 INR 1.1 APTT 24.6 Sodium Potassium Chloride Carbon Dioxide Anion Gap BUN Creatinine Estimated GFR Random Glucose Lactic Acid 1.0 Calcium Total Bilirubin AST ALT Alkaline Phosphatase Troponin I Total Protein Albumin TSH Urine Color Yellow Urine Clarity Clear Urine pH 5.0 Ur Specific [place] 1.014 Urine Protein Negative Urine Glucose (UA) Negative Urine Ketones Negative Urine Occult Blood Negative Urine Nitrate Negative Urine Bilirubin Negative Urine Urobilinogen Less than 2 Ur Leukocyte Esterase Negative Hyaline Casts 7 Urine Mucus Few H Micro UA Comment Culture not ind Urine Culture Comments Culture not ind Blood Type Blood Type Recheck Antibody Screen MTS Gel Crossmatch 10/03/17 10/03/17 10/04/17 20:23 23:45 00:35 WBC RBC Hgb Hct MCV MCH MCHC RDW Plt Count MPV Neut % (Auto) Lymph % (Auto) Dare % (Auto) Eos % (Auto) Baso % (Auto) Neut # (Auto) Lymph # (Auto) Dare # (Auto) Eos # (Auto) Baso # (Auto) WBC Differential Differential Comment PT INR APTT Sodium Potassium Chloride Carbon Dioxide Anion Gap BUN Creatinine Estimated GFR Random Glucose Lactic Acid Calcium Total Bilirubin AST ALT Alkaline Phosphatase Troponin I Less than 0.02 L Total Protein Albumin TSH Urine Color Urine Clarity Urine pH Ur Specific [place] Urine Protein Urine Glucose (UA) Urine Ketones Urine Occult Blood Urine Nitrate Urine Bilirubin Urine Urobilinogen Ur Leukocyte Esterase Hyaline Casts Urine Mucus Micro UA Comment Urine Culture Comments Blood Type A Positive Blood Type Recheck Antibody Screen Negative MTS Gel Crossmatch See Detail - Imaging Impression Knee X-Ray 10/03/17 00:00 CONCLUSION: Mild tricompartmental osteoarthritis. No acute abnormality is identified. Cervical Spine CT 10/03/17 18:13 CONCLUSION: 1. No fracture or acute appearing subluxation seen of the cervical spine. 2. Severe chronic degenerative disc changes at C5/C6 with grade 1 retrolisthesis and mild to moderate spinal stenosis. 3. Generalized uncovertebral and facet osteoarthritis as described. Head CT 10/03/17 18:13 CONCLUSION: No acute intracranial abnormality. Chest X-Ray 10/03/17 18:14 CONCLUSION: No acute cardiopulmonary disease demonstrated. Assessment and Plan - Assessment (1) Syncope Code(s): R55 - Syncope and collapse Status: Acute (2) Hypotension Code(s): I95.9 - Hypotension, unspecified Status: Acute (3) GI bleed Code(s): K92.2 - Gastrointestinal hemorrhage, unspecified Status: Acute (4) Renal insufficiency Code(s): N28.9 - Disorder of kidney and ureter, unspecified Status: Acute (5) MR (mental retardation) Code(s): F79 - Unspecified intellectual disabilities Status: Acute - Plan 62-year-old female with unknown PMH who was brought to the ER by EMS after syncopal event. Pt has h/o Mental Retardation w/ Cognitive Impairment, difficult to obtain history from patient. Per report, was waiting at bus stop when she fell out of her wheelchair onto the pavement, presumed LOC. Syncope: Likely due to hypotension, EMS noted BP 68/47, likely due to dehydration/hypovolemia. -CT Head/C-Spine w/ no acute findings, images reviewed. -Monitor on telemetry for possible arrhythmia -ACS ruled out with negative serial cardiac enzymes -Check Echo to eval for valvular abnormality/cardiomyopathy. -Give IVF for hydration -monitor I/O -repeat labs show improvement Hypotension: Transient, secondary to hypovolemia/dehydration compounded by anemia w/ GI Bleed. Afebrile and no leukocytosis to indicate sepsis. -S/p IVF w/ improvement -monitor BP closely -continue IVF for hydration GI Bleed: Hemoccult +, Hgb 9.5, baseline unknown -S/p 2 u pRBC transfusion -repeat Hgb 12.2 -monitor closely for bleeding. -Continue Protonix IV. -Gastroenterology Dr. Wilkins consulted, plans for EGD/colonoscopy on Friday Acute Renal Insufficiency: Creatinine 1.36, no previous labs for comparison, baseline unknown. -U/a negative for UTI. -Give IVF for hydration -Avoid nephrotoxins -repeat labs show improvement, Cr 1.03 Intellectual Disability: w/ Cognitive Impairment, appears to be at baseline -speech difficult to understand however pt answering questions appropriately. -patient reportedly lives with her sister -case management to assist with discharge planning DVT Prophylaxis: teds/SCDs. Pharmacologic contraindication in light of GI Bleed Discharge Planning: Awaiting echo. Planning for EGD/colonoscopy on Friday. Further disposition to follow. (1) Syncope Qualifiers: Syncope type: unspecified Qualified Code(s): R55 - Syncope and collapse
[2017-10-04] MEDS: Pantoprazole Inj 80 MG in Sodium Chlor 0.9% Inj 100 ML IV.CONT SCH ×2 (10:51→21:55)
[2017-10-04 11:20] LABS: Albumin 3.1 g/dL (3.4-5.0); Anion Gap 9 meq/L (5-15); Aspartate Aminotransferase 23 U/L (15-37); Blood Urea Nitrogen 15 mg/dL (7-18); Calcium 7.9 mg/dL (8.5-10.1); Carbon Dioxide 19.1 meq/L (21.0-32.0); Chloride 105 meq/L (98-107); Glomerular Filtration Rate 54 mL/min (>89); Glucose,Random 107 mg/dL (74-106); Potassium 4.3 meq/L (3.5-5.1); Sodium 133 meq/L (136-145)
[2017-10-04 11:21] LABS: Alanine Aminotransferase 22 U/L (10-53)
[2017-10-04 11:24] LABS: Alkaline Phosphatase 49 U/L (45-117); Total Protein 6.9 g/dL (6.4-8.2)
[2017-10-04 12:00] LABS: Baso % (Auto) 0.2 % (0.0-2.0); Eos % (Auto) 0.4 % (0.0-4.0); Hematocrit 36.1 % (35.0-46.0); Hemoglobin 12.2 gm/dL (11.6-15.3); Lymph # (Auto) 1.5 th/mm3 (1.0-4.8); Lymph % (Auto) 13.8 % (9.0-44.0); Mean Corpuscular HGB Conc 33.9 % (32.0-36.0); Mean Corpuscular Hemoglobin 30.4 pg (27.0-34.0); Mean Corpuscular Volume 89.7 fL (80.0-100.0); Mean Platelet Volume 8.2 fL (7.0-11.0); Mono # (Auto) 0.7 th/mm3 (0.0-0.9); Mono % (Auto) 6.6 % (0.0-8.0); Neut # (Auto) 8.3 th/mm3 (1.8-7.7); Platelet Count 278 th/mm3 (150-450); Red Blood Count 4.02 mil/mm3 (4.00-5.30); Red Cell Distribution Width 13.2 % (11.6-17.2); White Blood Count 10.6 th/mm3 (4.0-11.0)
[2017-10-05] MEDS: Sod Chloride 0.9% Inj 1,000 ML IV.CONT SCH ×3 (02:28→22:08)
[2017-10-05] MEDS: Pantoprazole Inj 80 MG in Sodium Chlor 0.9% Inj 100 ML IV.CONT SCH (08:37)
[2017-10-05] MEDS: Senna/Docusate Sodium 8.6/50 MG Tablet PO SCH ×2 (08:38→22:07)
[2017-10-05] MEDS: Pantoprazole Inj 40 MG Vial IV.PUSH SCH ×2 (08:38→22:07)
[2017-10-05] MEDS: Morphine Inj 4 MG/ML Vial IV.PUSH PRN (08:51)
--- NOTE | 2017-10-05 11:22 | P.PN ---
Subjective Interval history: Follow-up for anemia, GI bleed. Patient denies any abdominal pain, nausea/ vomiting, or diarrhea. She complains of diffuse right anterior knee pain. She states she fell a few days ago. She has bruising on the right anterior knee. She states she is still able to move the leg/knee. Denies any fevers or chills. Denies any other medical complaints at this time. Physical Exam Vital signs: Vital Signs 10/04/17 12:00 10/04/17 16:00 10/04/17 19:11 Temperature 98.6 F 98.5 F 98.6 F Pulse Rate 62 61 66 Respiratory Rate 16 16 16 Blood Pressure 119/59 L 105/52 L 125/61 Pulse Oximetry 98 97 98 10/04/17 20:00 10/04/17 20:01 10/04/17 23:11 Temperature 98.3 F Pulse Rate 65 63 Respiratory Rate 16 Blood Pressure 141/63 H Pulse Oximetry 98 96 10/05/17 00:00 10/05/17 04:00 10/05/17 08:00 Temperature 98.0 F 98.3 F Pulse Rate 53 L 49 L 63 Respiratory Rate 17 16 Blood Pressure 136/62 129/67 Pulse Oximetry 96 100 10/05/17 09:02 10/05/17 09:16 Temperature Pulse Rate Respiratory Rate 16 Blood Pressure Pulse Oximetry 95 Intake & Output 10/04/17 10/05/17 10/05/17 18:59 06:59 18:59 Intake Total 1979 / 1979 1350 / 1350 100 / 100 Output Total 250 / 250 200 / 200 Balance 1730 / 1730 1350 / 1350 -100 / -100 Weight 83.92 kg Intake: IV 1100 / 1100 1350 / 1350 100 / 100 Protonix Inj 80 MG In NS Inj 100 / 100 100 / 100 100 / 100 100 ML @ 10 mls/hr IV.CONT CONT DEBORAH Rx#:[id number] NS Inj 1,000 ML @ 100 mls/hr IV 1000 / 1000 1000 / 1000 .CONT .Q10H DEBORAH Rx#:[id number] NS Inj 250 ML @ 15 mls/hr IV. 250 / 250 SIG ONCE DEBORAH Rx#:[id number] Oral 480 / 480 Other 0 / 0 Rbc As-3 Leukoreduced Unit 0 / 0 [id number] Intake (Blood Product) Amt 400 / 400 Rbc As-3 Leukoreduced Unit 400 / 400 [id number] Output: Urine 250 / 250 200 / 200 Other: # Urine Diapers 2 Date of Last Bowel Movement 10/04/17 Weight On Admission 83.92 kg Narrative: GENERAL: Well-nourished, well-developed intellectually disabled female patient in [facility]. SKIN: Warm and dry. No rash. HEENT: Normocephalic. Atraumatic. Bilateral amblyopia. Pupils equal and round. Mucous membranes pink and moist. NECK: Supple. Trachea midline. CARDIOVASCULAR: Regular rate and rhythm. No murmur appreciated. RESPIRATORY: No accessory muscle use. Clear to auscultation. Breath sounds equal bilaterally. GASTROINTESTINAL: Abdomen soft, non-tender, nondistended. Normoactive bowel sounds x4. MUSCULOSKELETAL: No obvious deformities. Extremities without clubbing, cyanosis , or edema. Right anterior knee with ecchymosis, tender to palpation. NEUROLOGICAL: Awake and alert. No obvious cranial nerve deficits. Motor grossly within normal limits. Moving all extremities spontaneously. Normal speech. - Urinary Catheter Management Straight Cath placed during this visit: yes Reason for continuing: Not indwelling catheter Insertion date: 10/03/17 Insertion time: 18:35 Results - Labs CBC & Chem 7: 10/04/17 10:26 10/04/17 10:26 Laboratory Results - last 24 hr 10/04/17 10/04/17 10:26 10:26 WBC 10.6 D RBC 4.02 Hgb 12.2 D Hct 36.1 MCV 89.7 MCH 30.4 MCHC 33.9 RDW 13.2 Plt Count 278 MPV 8.2 Neut % (Auto) 79.0 H Lymph % (Auto) 13.8 [place] % (Auto) 6.6 Eos % (Auto) 0.4 Baso % (Auto) 0.2 Neut # (Auto) 8.3 H Lymph # (Auto) 1.5 [place] # (Auto) 0.7 Eos # (Auto) 0.0 Baso # (Auto) 0.0 WBC Differential . Differential Comment Auto diff final Total Bilirubin 1.4 H Alkaline Phosphatase 49 Troponin I Less than 0.02 L Total Protein 6.9 - Imaging Knee X-Ray 10/03/17 00:00 CONCLUSION: Mild tricompartmental osteoarthritis. No acute abnormality is identified. Cervical Spine CT 10/03/17 18:13 CONCLUSION: 1. No fracture or acute appearing subluxation seen of the cervical spine. 2. Severe chronic degenerative disc changes at C5/C6 with grade 1 retrolisthesis and mild to moderate spinal stenosis. 3. Generalized uncovertebral and facet osteoarthritis as described. Head CT 10/03/17 18:13 CONCLUSION: No acute intracranial abnormality. . Chest X-Ray 10/03/17 18:14 CONCLUSION: No acute cardiopulmonary disease demonstrated. Assessment and Plan - Assessment (1) Syncope Code(s): R55 - Syncope and collapse Status: Acute (2) Hypotension Code(s): I95.9 - Hypotension, unspecified Status: Acute (3) GI bleed Code(s): K92.2 - Gastrointestinal hemorrhage, unspecified Status: Acute (4) Renal insufficiency Code(s): N28.9 - Disorder of kidney and ureter, unspecified Status: Acute (5) MR (mental retardation) Code(s): F79 - Unspecified intellectual disabilities Status: Acute - Plan 62-year-old female with unknown PMH who was brought to the ER by EMS after syncopal event. Pt has h/o Mental Retardation w/ Cognitive Impairment, difficult to obtain history from patient. Per report, was waiting at bus stop when she fell out of her wheelchair onto the pavement, presumed LOC. Syncope: Likely due to hypotension, EMS noted BP 68/47, likely due to dehydration/hypovolemia. -CT Head/C-Spine w/ no acute findings, images reviewed. -Monitor on telemetry for possible arrhythmia -ACS ruled out with negative serial cardiac enzymes -Check Echo to eval for valvular abnormality/cardiomyopathy. -Give IVF for hydration -monitor I/O -repeat labs show improvement Hypotension: Transient, secondary to hypovolemia/dehydration compounded by anemia w/ GI Bleed. Afebrile and no leukocytosis to indicate sepsis. -S/p IVF w/ improvement -monitor BP closely -continue IVF for hydration GI Bleed: Hemoccult +, Hgb 9.5, baseline unknown -S/p 2 u pRBC transfusion -repeat Hgb 12.2 -monitor closely for bleeding. -Continue Protonix IV. -Gastroenterology Dr. Wilkins consulted, plans for EGD/colonoscopy on Friday Acute Renal Insufficiency: Creatinine 1.36, no previous labs for comparison, baseline unknown. -U/a negative for UTI. -Give IVF for hydration -Avoid nephrotoxins -repeat labs show improvement, Cr 1.03 Intellectual Disability: w/ Cognitive Impairment, appears to be at baseline -speech difficult to understand however pt answering questions appropriately. -patient reportedly lives with her sister -case management to assist with discharge planning DVT Prophylaxis: teds/SCDs. Pharmacologic contraindication in light of GI Bleed Discharge Planning: Awaiting echo. Planning for EGD/colonoscopy tomorrow. Further disposition to follow. (1) Syncope Qualifiers: Syncope type: unspecified Qualified Code(s): R55 - Syncope and collapse
[2017-10-05] MEDS ORDERED: PEG 3350/E-Lyte Soln 4000 ML Bottle PO ONE (16:00)
[2017-10-06 05:41] LABS: Baso # (Auto) 0.1 th/mm3 (0.0-0.2); Baso % (Auto) 0.5 % (0.0-2.0); Eos # (Auto) 0.3 th/mm3 (0.0-0.4); Hematocrit 34.4 % (35.0-46.0); Hemoglobin 11.8 gm/dL (11.6-15.3); Lymph # (Auto) 1.8 th/mm3 (1.0-4.8); Lymph % (Auto) 18.3 % (9.0-44.0); Mean Corpuscular HGB Conc 34.3 % (32.0-36.0); Mean Corpuscular Hemoglobin 30.7 pg (27.0-34.0); Mean Corpuscular Volume 89.6 fL (80.0-100.0); Mean Platelet Volume 8.3 fL (7.0-11.0); Mono # (Auto) 0.5 th/mm3 (0.0-0.9); Mono % (Auto) 5.3 % (0.0-8.0); Neut % (Auto) 72.9 % (16.0-70.0); Platelet Count 275 th/mm3 (150-450); Red Blood Count 3.83 mil/mm3 (4.00-5.30); Red Cell Distribution Width 13.2 % (11.6-17.2); White Blood Count 9.6 th/mm3 (4.0-11.0)
[2017-10-06 05:48] LABS: Carbon Dioxide 19.9 meq/L (21.0-32.0)
[2017-10-06] MEDS: Pantoprazole Inj 40 MG Vial IV.PUSH SCH ×2 (08:21→20:21)
[2017-10-06] MEDS: Sod Chloride 0.9% Inj 1,000 ML IV.CONT SCH (08:22)
--- NOTE | 2017-10-06 08:32 | ECHRPT ---
Indication: CARDIOMYOPATHY CONCLUSIONS Normal left ventricular size. Wall thickness is normal. The left ventricular systolic function is low normal with an estimated ejection fraction in the rang e of 50- 55%. The left atrial size is mildly dilated. The right atrial size is [id number] dilated. Mild mitral valve regurgitation. Trace aortic valve regurgitation. There is mild to moderate tricuspid valve regurgitation. The estimated pulmonary arterial pressure is 35.8 mmHg. Trivial pulmonary valve regurgitation. BP: / HR: Rhythm: Sinus MEASUREMENTS (Male / Female) Normal Values Technical Quality:Fair 2D ECHO LV Diastolic Diameter PLAX 4.9 cm 4.2 - 5.9 / 3.9 - 5.3 cm LV Systolic Diameter PLAX 3.8 cm IVS Diastolic Thickness 0.7 cm 0.6 - 1.0 / 0.6 - 0.9 cm LVPW Diastolic Thickness 0.7 cm 0.6 - 1.0 / 0.6 - 0.9 cm LV Relative Wall Thickness 0.3 RV Internal Dim ED PLAX 2.9 cm LVOT Diameter 1.8 cm Aortic Root Diameter 3.5 cm LA Systolic Diameter LX 3.2 cm 3.0 - 4.0 / 2.7 - 3.8 cm DOPPLER AV Peak Velocity 132.0 cm/s AV Peak Gradient 7.0 mmHg AV Mean Gradient 4.0 mmHg AV Velocity Time Integral 30.6 cm LVOT Peak Velocity 83.5 cm/s LVOT Peak Gradient 2.8 mmHg LVOT Velocity Time Integral 22.9 cm AV Area Cont Eq vti 1.9 cm AV Area Cont Eq pk 1.6 cm Mitral E Point Velocity 79.5 cm/s Mitral A Point Velocity 75.0 cm/s Mitral E to A Ratio 1.1 LV E' Lateral Velocity 11.1 cm/s Mitral E to LV E' Lateral Ratio 7.2 LV E' Septal Velocity 7.3 cm/s Mitral E to LV E' Septal Ratio 10.9 TR Peak Velocity 254.0 cm/s TR Peak Gradient 26.0 mmHg Right Atrial Pressure 10.0 mmHg Pulmonary Artery Systolic Pressu 35.8 mmHg Right Ventricular Systolic Press 35.8 mmHg PV Peak Velocity 40.6 cm/s PV Peak Gradient 0.7 mmHg FINDINGS LEFT VENTRICLE Normal left ventricular size. Wall thickness is normal. The left ventricular systolic function is low normal with an estimated ejection fraction in the rang e of 50- 55%. RIGHT VENTRICLE Normal right ventricular size and systolic function. LEFT ATRIUM The left atrial size is mildly dilated. RIGHT ATRIUM The right atrial size is [id number] dilated. ATRIAL SEPTUM No atrial level shunt is demonstrated by color flow Doppler interrogation. AORTA The aortic root and proximal ascending aorta are normal in size on limited imaging. MITRAL VALVE Mild mitral valve regurgitation. AORTIC VALVE Trileaflet aortic valve. Trace aortic valve regurgitation. TRICUSPID VALVE There is mild to moderate tricuspid valve regurgitation. The estimated pulmonary arterial pressure is 35.8 mmHg. PULMONARY VALVE Trivial pulmonary valve regurgitation. VESSELS The inferior vena cava is normal in size. PERICARDIUM No pericardial effusion. Jarrell Fleming MD (Electronically Signed) Final Date:06 October 2017 08:31
[2017-10-06] MEDS: Senna/Docusate Sodium 8.6/50 MG Tablet PO SCH ×2 (10:56→20:22)
--- NOTE | 2017-10-06 11:16 | P.PN ---
Subjective Interval history: Follow-up for anemia, GI bleed. The patient reports continued right knee pain, however improving. She denies any nausea or vomiting. Denies any abdominal pain. Had multiple bowel movements after her bowel prep last night. Denies any other medical complaints at this time. Going for EGD/colonoscopy today. Physical Exam Vital signs: Vital Signs 10/05/17 12:00 10/05/17 16:00 10/05/17 20:00 Temperature 97.7 F 98.1 F Pulse Rate 50 L 48 L 56 L Respiratory Rate 16 18 Blood Pressure 130/62 154/86 H Pulse Oximetry 97 97 10/06/17 00:00 10/06/17 04:00 10/06/17 07:57 Temperature 98.3 F 98.4 F 97.8 F Pulse Rate 59 L 57 L 56 L Respiratory Rate 16 18 18 Blood Pressure 145/70 H 155/82 H 165/72 H Pulse Oximetry 98 100 97 Intake & Output 10/05/17 10/06/17 10/06/17 18:59 06:59 18:59 Intake Total 2520 / 2520 4000 / 4000 1000 / 1000 Output Total 200 / 200 Balance 2320 / 2320 4000 / 4000 1000 / 1000 Weight 83.9 kg Intake: IV 1160 / 1160 1000 / 1000 1000 / 1000 Protonix Inj 80 MG In NS Inj 160 / 160 100 ML @ 10 mls/hr IV.CONT CONT DEBORAH Rx#:[id number] NS Inj 1,000 ML @ 100 mls/hr IV 1000 / 1000 1000 / 1000 1000 / 1000 .CONT .Q10H DEBORAH Rx#:[id number] Oral 1360 / 1360 3000 / 3000 Output: Urine 200 / 200 Other: # Incontinent Voids 2 4 # Urine Diapers 2 Date of Last Bowel Movement 10/04/17 10/05/17 # Incontinent Bowel Movements 6 Narrative: GENERAL: Well-nourished, well-developed intellectually disabled female patient in [facility]. SKIN: Warm and dry. No rash. HEENT: Normocephalic. Atraumatic. Bilateral amblyopia. Pupils equal and round. Mucous membranes pink and moist. CARDIOVASCULAR: Regular rate and rhythm. No murmur appreciated. RESPIRATORY: No accessory muscle use. Clear to auscultation. Breath sounds equal bilaterally. GASTROINTESTINAL: Abdomen soft, non-tender, nondistended. Normoactive bowel sounds x4. MUSCULOSKELETAL: No obvious deformities. Extremities without clubbing, cyanosis , or edema. Right anterior knee with ecchymosis, tender to palpation. NEUROLOGICAL: Awake and alert. No obvious cranial nerve deficits. Motor grossly within normal limits. Moving all extremities spontaneously. Speech difficult to understand at times. - Urinary Catheter Management Straight Cath placed during this visit: yes Reason for continuing: Not indwelling catheter Insertion date: 10/03/17 Insertion time: 18:35 Results - Labs CBC & Chem 7: 10/06/17 04:50 10/06/17 04:00 Laboratory Results - last 24 hr 10/06/17 10/06/17 04:00 04:50 WBC 9.6 RBC 3.83 L Hgb 11.8 Hct 34.4 L MCV 89.6 MCH 30.7 MCHC 34.3 RDW 13.2 Plt Count 275 MPV 8.3 Neut % (Auto) 72.9 H Lymph % (Auto) 18.3 [place] % (Auto) 5.3 Eos % (Auto) 3.0 Baso % (Auto) 0.5 Neut # (Auto) 7.0 Lymph # (Auto) 1.8 [place] # (Auto) 0.5 Eos # (Auto) 0.3 Baso # (Auto) 0.1 WBC Differential . Differential Comment Auto diff final Sodium 137 Potassium 4.0 Chloride 109 H Carbon Dioxide 19.9 L Anion Gap 8 BUN 10 Creatinine 0.81 Estimated GFR 71 L Random Glucose 91 Calcium 8.0 L - Imaging Knee X-Ray 10/03/17 00:00 CONCLUSION: Mild tricompartmental osteoarthritis. No acute abnormality is identified. Cervical Spine CT 10/03/17 18:13 CONCLUSION: 1. No fracture or acute appearing subluxation seen of the cervical spine. 2. Severe chronic degenerative disc changes at C5/C6 with grade 1 retrolisthesis and mild to moderate spinal stenosis. 3. Generalized uncovertebral and facet osteoarthritis as described. Head CT 10/03/17 18:13 CONCLUSION: No acute intracranial abnormality. . Chest X-Ray 10/03/17 18:14 CONCLUSION: No acute cardiopulmonary disease demonstrated. Assessment and Plan - Assessment (1) Syncope Code(s): R55 - Syncope and collapse Status: Acute (2) Hypotension Code(s): I95.9 - Hypotension, unspecified Status: Acute (3) GI bleed Code(s): K92.2 - Gastrointestinal hemorrhage, unspecified Status: Acute (4) Renal insufficiency Code(s): N28.9 - Disorder of kidney and ureter, unspecified Status: Acute (5) MR (mental retardation) Code(s): F79 - Unspecified intellectual disabilities Status: Acute - Plan 62-year-old female with unknown PMH who was brought to the ER by EMS after syncopal event. Pt has h/o Mental Retardation w/ Cognitive Impairment, difficult to obtain history from patient. Per report, was waiting at bus stop when she fell out of her wheelchair onto the pavement, presumed LOC. Syncope: Likely due to hypotension, EMS noted BP 68/47, likely due to dehydration/hypovolemia. -CT Head/C-Spine w/ no acute findings, images reviewed. -Monitor on telemetry for possible arrhythmia -ACS ruled out with negative serial cardiac enzymes -Echocardiogram showed EF 5055% -Given IVF for hydration -monitor I/O -repeat labs show improvement -Symptoms resolved, no lightheadedness/dizziness/syncope throughout admission Hypotension: Transient, secondary to hypovolemia/dehydration compounded by anemia w/ GI Bleed. Afebrile and no leukocytosis to indicate sepsis. -S/p IVF w/ improvement -monitor BP closely -continue IVF for hydration -Much improved, BP stable GI Bleed: Hemoccult +, Hgb 9.5, baseline unknown -S/p 2 u pRBC transfusion -repeat Hgb 12.2 -monitor closely for bleeding. -Continue Protonix IV. -Gastroenterology Dr. Wilkins consulted, plans for EGD/colonoscopy today Acute Renal Insufficiency: Creatinine 1.36, no previous labs for comparison, baseline unknown. -U/a negative for UTI. -Give IVF for hydration -Avoid nephrotoxins -repeat labs show improvement, Cr 0.81, resolved Intellectual Disability: w/ Cognitive Impairment, appears to be at baseline -speech difficult to understand however pt answering questions appropriately. -patient reportedly lives with her sister -case management to assist with discharge planning Right knee pain: Acute on chronic, recent fall with ecchymosis to the anterior knee. -Knee x-ray reviewed, shows mild tricompartmental osteoarthritis; no acute findings -Ice packs and pain control as needed DVT Prophylaxis: teds/SCDs. Pharmacologic contraindication in light of GI Bleed Discharge Planning: Planning for EGD/colonoscopy today. Further disposition to follow. (1) Syncope Qualifiers: Syncope type: unspecified Qualified Code(s): R55 - Syncope and collapse
[2017-10-06] MEDS ORDERED: Lidocaine PF 1% Inj 5 ML Syringe INFILTRATN ONE (12:00)
--- NOTE | 2017-10-06 13:19 | P.PCN ---
Procedure: THANK YOU FOR THE REFERRAL Indication; anemia Procedure Performed; upper endoscopy: With biopsy Colonoscopy: Diagnostic After informing the patient about procedure and possible complications consent was signed. history and physical were updated. Patient was taken to the procedure room and placed in position. Time out was completed. Adequate sedation was performed by anesthesia provider. Upper Endoscopy, the scope was placed in the mouth advanced under video guide to the second portion of the duodenum, then the scope was withdrawal to the stomach and retro-flexion was performed, the scope was withdrawal to the esophagus then out of the mouth without any immediate complication Colonoscopy, rectal exam was performed the scope was placed in the rectum advanced under video guide to the cecum which was identified by ileo-cecal valve and appendiceal orifice, then the scope withdrawal slowly with examination of the mucosa to the rectum and retro-flexion was performed, the scope was withdrawal without any immediate complication Findings; Colon: Some stool throughout the colon may interfere with division of small lesion Rectum: Normal No active bleeding Esophagus: Esophagitis, small ulceration at the GE junction biopsy was done Stomach: Large ulcer in the antrum leading to the pyloric channel biopsy was done Duodenum: Normal Recommendations; 1- Supportive care 2- ok to transfer to recovery area then discharge per protocol 3-cardiac diet 4-Hemoccult on a yearly basis by primary care physician 5-colonoscopy in 1 6- EGD in 2 month to evaluate the ulcer 7-continue PPI 8-monitor H&H with packed RBC if needed
--- NOTE | 2017-10-06 13:22 | P.PNGI ---
Subjective Interval history: Patient is laying in bed, complaining of knee pain, no sign of active bleeding, hemoglobin is stable, she has speech impairment Physical Exam Vital signs: Vital Signs 10/05/17 16:00 10/05/17 20:00 10/06/17 00:00 Temperature 98.1 F 98.3 F Pulse Rate 48 L 56 L 59 L Respiratory Rate 18 16 Blood Pressure 154/86 H 145/70 H Pulse Oximetry 97 98 10/06/17 04:00 10/06/17 07:57 10/06/17 08:00 Temperature 98.4 F 97.8 F Pulse Rate 57 L 56 L 67 Respiratory Rate 18 18 Blood Pressure 155/82 H 165/72 H Pulse Oximetry 100 97 97 Intake & Output 10/05/17 10/06/17 10/06/17 18:59 06:59 18:59 Intake Total 2520 / 2520 4000 / 4000 1000 / 1000 Output Total 200 / 200 Balance 2320 / 2320 4000 / 4000 1000 / 1000 Weight 83.9 kg Intake: IV 1160 / 1160 1000 / 1000 1000 / 1000 Protonix Inj 80 MG In NS Inj 160 / 160 100 ML @ 10 mls/hr IV.CONT CONT DEBORAH Rx#:[id number] NS Inj 1,000 ML @ 100 mls/hr IV 1000 / 1000 1000 / 1000 1000 / 1000 .CONT .Q10H DEBORAH Rx#:[id number] Oral 1360 / 1360 3000 / 3000 Output: Urine 200 / 200 Other: # Incontinent Voids 2 4 # Urine Diapers 2 Date of Last Bowel Movement 10/04/17 10/05/17 10/06/17 # Incontinent Bowel Movements 6 - Constitutional no acute distress - Routine HEENT Exam Head: Present: normocephalic Eye: Present: EOMI, PERRL ENT: Present: mucous membranes moist - Routine Neck Exam Present: supple, full ROM - Routine Respiratory Exam Present: CTA bilaterally - Routine Cardiovascular Exam Present: RRR, S1, S2 - Routine Abdominal Exam Present: soft, normoactive bowel sounds Comments: Obese - Urinary Catheter Management Straight Cath placed during this visit: yes Reason for continuing: Not indwelling catheter Insertion date: 10/03/17 Insertion time: 18:35 Results - Labs CBC & Chem 7: 10/06/17 04:50 10/06/17 04:00 Laboratory Results - last 24 hr 10/06/17 10/06/17 04:00 04:50 WBC 9.6 RBC 3.83 L Hgb 11.8 Hct 34.4 L MCV 89.6 MCH 30.7 MCHC 34.3 RDW 13.2 Plt Count 275 MPV 8.3 Neut % (Auto) 72.9 H Lymph % (Auto) 18.3 [place] % (Auto) 5.3 Eos % (Auto) 3.0 Baso % (Auto) 0.5 Neut # (Auto) 7.0 Lymph # (Auto) 1.8 [place] # (Auto) 0.5 Eos # (Auto) 0.3 Baso # (Auto) 0.1 WBC Differential . Differential Comment Auto diff final Sodium 137 Potassium 4.0 Chloride 109 H Carbon Dioxide 19.9 L Anion Gap 8 BUN 10 Creatinine 0.81 Estimated GFR 71 L Random Glucose 91 Calcium 8.0 L Assessment and Plan - Plan - GI bleed/anemia, heme (+) stools, hgb on admission 9.5, syncopal episode, symptomatic- This is a 62-year-old female with unknown PMH who was brought to the ER by EMS after syncopal event. Patient has Cognitive Impairment, difficult to obtain history from patient, but able to answer simple questions with yes and no. Per report, pt is wheelchair bound, was waiting at bus stop when she fell out of her wheelchair onto the pavement, presumed LOC. On arrival she was hypotensive, hgb is 9.5, base line unknown, was found Hemoccult +. CT Head with no acute findings. CT C-spine with no acute fracture, severe chronic degenerative changes. CXR negative. Currently receiving blood, 2u pRBC ordered , PPI. Pt states she had colonoscopy 2 yrs ago. Endorses wt loss and dysphagia due to poor dentition. She denies nausea, vomiting, hematemesis, abd pain, hematochezia, melena, diarrhea or constipation. 10/06/2017 patient is doing okay, hemoglobin stable, had upper endoscopy and colonoscopy today Findings; Colon: Some stool throughout the colon may interfere with division of small lesion Rectum: Normal No active bleeding Esophagus: Esophagitis, small ulceration at the GE junction biopsy was done Stomach: Large ulcer in the antrum leading to the pyloric channel biopsy was done Duodenum: Normal Recommendations; 1- Supportive care 2- ok to transfer to recovery area then discharge per protocol 3-cardiac diet 4-Hemoccult on a yearly basis by primary care physician 5-colonoscopy in 1 6- EGD in 2 month to evaluate the ulcer 7-continue PPI 8-monitor H&H with packed RBC if needed
--- NOTE | 2017-10-06 15:58 | P.DS ---
Date of admission: 10/03/17 20:18 Primary care physician: UNKNOWN Anticipated date of discharge: 10/06/17 Brief History from admission: This is a 62-year-old female with unknown PMH who was brought to the ER by EMS after syncopal event. Pt has h/o Mental Retardation w/ Cognitive Impairment, difficult to obtain history from patient. Per report, pt is wheelchair bound, was waiting at bus stop when she fell out of her wheelchair onto the pavement, presumed LOC. She is able to tell me that she had dizziness prior to event. EMS noted BP 68/47, s/p IVF w/ improvement. On arrival, BP 75/42, HR 61, O2 sat 95% on RA, Afebrile. S/p IVF w/ repeat BP 105/63, HR 64. Hemoglobin 9.5, no previous labs for comparison. INR 1.1. Creatinine 1.36, no previous labs for comparison. Troponin negative. UA negative for UTI. CT Head with no acute findings. CT C-spine with no acute fracture, severe chronic degenerative changes. CXR negative. On exam, Hemoccult +. Dr. Wilkins consulted, recommended transfusion of 2u pRBC as pt's baseline Hgb unknown. DS: Diagnosis - Discharge Diagnosis (1) Syncope Status: Acute (2) Hypotension Status: Acute (3) GI bleed Status: Acute (4) Renal insufficiency Status: Acute (5) MR (mental retardation) Status: Acute (6) Esophagitis Status: Acute (7) Gastric ulcer Status: Acute DS: Medications - Discharge Medications Prescriptions: levothyroxine [Synthroid] 50 mcg PO DAILY #30 tab pantoprazole [Protonix] 40 mg PO BID 30 Days #60 tab DS: Summary Hospital Course: 62-year-old female with unknown PMH who was brought to the ER by EMS after syncopal event. Pt has h/o Mental Retardation w/ Cognitive Impairment, difficult to obtain history from patient. Per report, was waiting at bus stop when she fell out of her wheelchair onto the pavement, presumed LOC. Syncope: Likely due to hypotension, EMS noted BP 68/47, likely due to dehydration/hypovolemia with GI bleeding. CT Head/C-Spine w/ no acute findings , images reviewed. Monitor on telemetry for possible arrhythmia. ACS ruled out with negative serial cardiac enzymes. Echocardiogram showed EF 5055%. Given IVF for hydration. Monitor I/O. Repeat labs show improvement. Symptoms resolved , no lightheadedness/dizziness/syncope throughout admission. Hypotension: Transient, secondary to hypovolemia/dehydration compounded by anemia w/ GI Bleed. Afebrile and no leukocytosis to indicate sepsis. S/p IVF w / improvement. Much improved, BP stable. GI Bleed: Hemoccult +, Hgb 9.5, baseline unknown. S/p 2 u pRBC transfusion. Repeat Hgb 12.2. Continued Protonix IV. Gastroenterology Dr. Wilkins consulted, appreciate recommendations. Status post EGD/colonoscopy on 10/06/17, EGD showed esophagitis, small ulceration at GE junction, large ulcer in the gastric antrum leading to the pyloric channel, biopsies performed. Colonoscopy unremarkable. Diet was advanced. GI cleared for discharge, recommended yearly Hemoccult, colonoscopy in 1 year, EGD in 2 months to evaluate the ulcer, continue PPI, outpatient follow-up. Acute Renal Insufficiency: Creatinine 1.36, no previous labs for comparison, baseline unknown. U/a negative for UTI. Given IVF for hydration. Avoid nephrotoxins. Repeat labs show improvement, Cr 0.81, resolved. Intellectual Disability: w/ Cognitive Impairment, appears to be at baseline. Speech difficult to understand however pt answering questions appropriately. Patient lives with her sister. Case management to assist with discharge planning. Right knee pain: Acute on chronic, recent fall with ecchymosis to the anterior knee. Knee x-ray reviewed, shows mild tricompartmental osteoarthritis; no acute findings. Ice packs and pain control as needed. Outpatient f/up with orthopedics. Hypothyroidism: TSH 6.9. Started on levothyroxine 50mcg daily. Recommended repeat TSH/T4 in 6 weeks. Follow up with PCP. - Time Spent with Patient Total time spent providing and/or coordinating discharge services: Greater than 30 minutes - Quality: VTE Deep Vein Thrombosis/Pulmonary Embolism Present on Admission: No Exam Vital signs: Vital Signs 10/05/17 16:00 10/05/17 20:00 10/06/17 00:00 Temperature 98.1 F 98.3 F Pulse Rate 48 L 56 L 59 L Respiratory Rate 18 16 Blood Pressure 154/86 H 145/70 H Pulse Oximetry 97 98 10/06/17 04:00 10/06/17 07:57 10/06/17 08:00 Temperature 98.4 F 97.8 F Pulse Rate 57 L 56 L 67 Respiratory Rate 18 18 Blood Pressure 155/82 H 165/72 H Pulse Oximetry 100 97 97 10/06/17 13:27 10/06/17 15:39 Temperature 98.1 F 98.0 F Pulse Rate 61 42 L Respiratory Rate 18 16 Blood Pressure 136/66 164/74 H Pulse Oximetry 100 Intake & Output 10/05/17 10/06/17 10/06/17 18:59 06:59 18:59 Intake Total 2520 / 2520 4000 / 4000 1000 / 1000 Output Total 200 / 200 Balance 2320 / 2320 4000 / 4000 1000 / 1000 Weight 83.9 kg Intake: IV 1160 / 1160 1000 / 1000 1000 / 1000 Protonix Inj 80 MG In NS Inj 160 / 160 100 ML @ 10 mls/hr IV.CONT CONT DEBORAH Rx#:[id number] NS Inj 1,000 ML @ 100 mls/hr IV 1000 / 1000 1000 / 1000 1000 / 1000 .CONT .Q10H DEBORAH Rx#:[id number] Oral 1360 / 1360 3000 / 3000 Output: Urine 200 / 200 Other: # Incontinent Voids 2 4 # Urine Diapers 2 Date of Last Bowel Movement 10/04/17 10/05/17 10/06/17 # Incontinent Bowel Movements 6 Results Procedures completed during hospitalization: 10/06/2017: EGD/Colonoscopy Colon: Some stool throughout the colon may interfere with division of small lesion Rectum: Normal No active bleeding Esophagus: Esophagitis, small ulceration at the GE junction biopsy was done Stomach: Large ulcer in the antrum leading to the pyloric channel biopsy was done Duodenum: Normal Pending studies at discharge: Pending at discharge 10/06/17 Surgical [PTH] Routine Labs on day of discharge: Labs from last 24 hours 10/06/17 10/06/17 04:50 04:00 WBC 9.6 RBC 3.83 L Hgb 11.8 Hct 34.4 L MCV 89.6 MCH 30.7 MCHC 34.3 RDW 13.2 Plt Count 275 MPV 8.3 Neut % (Auto) 72.9 H Lymph % (Auto) 18.3 [place] % (Auto) 5.3 Eos % (Auto) 3.0 Baso % (Auto) 0.5 Neut # (Auto) 7.0 Lymph # (Auto) 1.8 [place] # (Auto) 0.5 Eos # (Auto) 0.3 Baso # (Auto) 0.1 WBC Differential . Differential Comment Auto diff final Sodium 137 Potassium 4.0 Chloride 109 H Carbon Dioxide 19.9 L Anion Gap 8 BUN 10 Creatinine 0.81 Estimated GFR 71 L Random Glucose 91 Calcium 8.0 L - Impressions ITS Impressions Knee X-Ray 10/03/17 00:00 CONCLUSION: Mild tricompartmental osteoarthritis. No acute abnormality is identified. Cervical Spine CT 10/03/17 18:13 CONCLUSION: 1. No fracture or acute appearing subluxation seen of the cervical spine. 2. Severe chronic degenerative disc changes at C5/C6 with grade 1 retrolisthesis and mild to moderate spinal stenosis. 3. Generalized uncovertebral and facet osteoarthritis as described. Head CT 10/03/17 18:13 CONCLUSION: No acute intracranial abnormality. . Chest X-Ray 10/03/17 18:14 CONCLUSION: No acute cardiopulmonary disease demonstrated. Discharge Plan - Discharge Disposition Patient Disposition: 01 Discharge Home - Discharge Condition Condition: Stable - Discharge Order Discharge Orders: Discharge Order (Routine); Ordered 10/06/17 Ordered By: Nicole Strickland - Discharge Details Anticipated Discharge Date: 10/06/17 Discharge Comment: GI recommends repeat EGD in 2 months for evaluation of gastric ulcer. Repeat colonoscopy in 1 years. Take Protonix. - Physicians Team Primary Care Provider: UNKNOWN, Attending Provider: Joseph Davis Other Providers: Venessa Wilkins MD
[2017-10-06] MEDS: Temazepam 15 MG Capsule PO PRN (20:22)
[2017-10-07] MEDS: Sod Chloride 0.9% Inj 1,000 ML IV.CONT SCH ×3 (04:59→20:13)
[2017-10-07] MEDS ORDERED: Gadobutrol PF 7.5 MMOL/7.5 ML Vial (for RAD) IV.SIG ONE (05:19)
--- NOTE | 2017-10-07 09:39 | P.PNIM ---
Subjective Interval history: This is a 62-year-old female with unknown PMH who was brought to the ER by EMS after syncopal event. Pt has h/o Mental Retardation w/ Cognitive Impairment, difficult to obtain history from patient. Per report, pt is wheelchair bound, was waiting at bus stop when she fell out of her wheelchair onto the pavement, presumed LOC. She is able to tell me that she had dizziness prior to event. EMS noted BP 68/47, s/p IVF w/ improvement. On arrival, BP 75/42, HR 61, O2 sat 95% on RA, Afebrile. S/p IVF w/ repeat BP 105/63, HR 64. Hemoglobin 9.5, no previous labs for comparison. INR 1.1. Creatinine 1.36, no previous labs for comparison. Troponin negative. UA negative for UTI. CT Head with no acute findings. CT C-spine with no acute fracture, severe chronic degenerative changes. CXR negative. On exam, Hemoccult +. Dr. Wilkins consulted, recommended transfusion of 2u pRBC as pt's baseline Hgb unknown. 8-11 Follow-up for anemia, GI bleed. Patient denies any abdominal pain or nausea/vomiting. She states she has been tolerating oral intake. No reported bowel movement overnight or today. Denies any lightheadedness or dizziness. Denies any chest pain shortness of breath. She states she ambulates with a walker. She reportedly lives with her sister. The patient has no other medical complaints at this time. 8-12 Follow-up for anemia, GI bleed. Patient denies any abdominal pain, nausea /vomiting, or diarrhea. She complains of diffuse right anterior knee pain. She states she fell a few days ago. She has bruising on the right anterior knee. She states she is still able to move the leg/knee. Denies any fevers or chills. Denies any other medical complaints at this time. 8-13 Follow-up for anemia, GI bleed. The patient reports continued right knee pain, however improving. She denies any nausea or vomiting. Denies any abdominal pain. Had multiple bowel movements after her bowel prep last night. Denies any other medical complaints at this time. Going for EGD/colonoscopy today. 8-14 had EGD AND COLONOSCOPY YESTERDAY SEE REPORTS NOT MOVING HANDS VERY WELL AT THIS TIME WILL GET PT AND OT TO EVAL AND WILL GET MRI OF NECK TO RULE OUT CORD COMPRESSION MRI ABNORMAL CONSULT DR RICHARD OF NEUROSURGERY HE WILL EVALUATE MAY NEED TRANSFER TO [facility] WILL START DECADRON IV ALREADY ON PROTONIX NEEDS TRANSFER TO [facility] FOR EVALUATION BY DR JACOB MORILLO OF NEUROSURGERY [phone] DR RICHARD ALREADY SPOKE TO HIM DIRECTLY HOPEFULLY TO [facility] LATER TODAY PAPERWORK HAS BEEN DONE Physical Exam Vital signs: Vital Signs 10/06/17 13:27 10/06/17 15:39 10/06/17 16:26 Temperature 98.1 F 98.0 F Pulse Rate 61 42 L 43 L Respiratory Rate 18 16 Blood Pressure 136/66 164/74 H Pulse Oximetry 100 10/06/17 20:00 10/07/17 00:00 10/07/17 04:00 Temperature 99.6 F 98.5 F Pulse Rate 55 L 54 L 47 L Respiratory Rate 17 18 Blood Pressure 159/73 H 168/69 H Pulse Oximetry 99 10/07/17 07:48 Temperature 97.9 F Pulse Rate 45 L Respiratory Rate 16 Blood Pressure 151/63 H Pulse Oximetry Intake & Output 10/06/17 10/07/17 10/07/17 18:59 06:59 18:59 Intake Total 1000 / 1000 Balance 1000 / 1000 Intake: IV 1000 / 1000 NS Inj 1,000 ML @ 100 mls/hr IV 1000 / 1000 .CONT .Q10H [facility] Rx#:[id number] Other: Date of Last Bowel Movement 10/06/17 10/06/17 Narrative: GENERAL: Well-nourished, well-developed intellectually disabled female patient in [facility]. SKIN: Warm and dry. No rash. HEENT: Normocephalic. Atraumatic. Bilateral amblyopia. Pupils equal and round. Mucous membranes pink and moist. CARDIOVASCULAR: Regular rate and rhythm. No murmur appreciated. RESPIRATORY: No accessory muscle use. Clear to auscultation. Breath sounds equal bilaterally. GASTROINTESTINAL: Abdomen soft, non-tender, nondistended. Normoactive bowel sounds x4. MUSCULOSKELETAL: No obvious deformities. Extremities without clubbing, cyanosis , or edema. Right anterior knee with ecchymosis, tender to palpation. NEUROLOGICAL: Awake and alert. No obvious cranial nerve deficits. Motor grossly within normal limits. Moving all extremities spontaneously. Speech difficult to understand at times. DOES NOT SEEM TO MOVE HER HANDS VERY WELL- HAD TO ASSESS DUE TO MENTAL STATUS/ DISABILITY - Urinary Catheter Management Straight Cath placed during this visit: yes Reason for continuing: Not indwelling catheter Insertion date: 10/03/17 Insertion time: 18:35 Results - Labs CBC & Chem 7: 10/06/17 04:50 10/06/17 04:00 Laboratory Results - last 72 hr 10/03/17 10/04/17 10/04/17 23:45 10:26 10:26 WBC 10.6 D RBC 4.02 Hgb 12.2 D Hct 36.1 MCV 89.7 MCH 30.4 MCHC 33.9 RDW 13.2 Plt Count 278 MPV 8.2 Neut % (Auto) 79.0 H Lymph % (Auto) 13.8 [place] % (Auto) 6.6 Eos % (Auto) 0.4 Baso % (Auto) 0.2 Neut # (Auto) 8.3 H Lymph # (Auto) 1.5 [place] # (Auto) 0.7 Eos # (Auto) 0.0 Baso # (Auto) 0.0 WBC Differential . Differential Comment Auto diff final Sodium 133 L Potassium 4.3 Chloride 105 Carbon Dioxide 19.1 L Anion Gap 9 BUN 15 Creatinine 1.03 H Estimated GFR 54 L Random Glucose 107 H Calcium 7.9 L Total Bilirubin 1.4 H AST 23 ALT 22 Alkaline Phosphatase 49 Troponin I Less than 0.02 L Total Protein 6.9 Albumin 3.1 L MTS Gel Crossmatch See Detail 10/06/17 10/06/17 04:00 04:50 WBC 9.6 RBC 3.83 L Hgb 11.8 Hct 34.4 L MCV 89.6 MCH 30.7 MCHC 34.3 RDW 13.2 Plt Count 275 MPV 8.3 Neut % (Auto) 72.9 H Lymph % (Auto) 18.3 [place] % (Auto) 5.3 Eos % (Auto) 3.0 Baso % (Auto) 0.5 Neut # (Auto) 7.0 Lymph # (Auto) 1.8 [place] # (Auto) 0.5 Eos # (Auto) 0.3 Baso # (Auto) 0.1 WBC Differential . Differential Comment Auto diff final Sodium 137 Potassium 4.0 Chloride 109 H Carbon Dioxide 19.9 L Anion Gap 8 BUN 10 Creatinine 0.81 Estimated GFR 71 L Random Glucose 91 Calcium 8.0 L Total Bilirubin AST ALT Alkaline Phosphatase Troponin I Total Protein Albumin MTS Gel Crossmatch - Imaging Knee X-Ray 10/03/17 00:00 CONCLUSION: Mild tricompartmental osteoarthritis. No acute abnormality is identified. Cervical Spine CT 10/03/17 18:13 CONCLUSION: 1. No fracture or acute appearing subluxation seen of the cervical spine. 2. Severe chronic degenerative disc changes at C5/C6 with grade 1 retrolisthesis and mild to moderate spinal stenosis. 3. Generalized uncovertebral and facet osteoarthritis as described. Head CT 10/03/17 18:13 CONCLUSION: No acute intracranial abnormality. . Chest X-Ray 10/03/17 18:14 CONCLUSION: No acute cardiopulmonary disease demonstrated. - Procedures 10/06/2017: EGD/Colonoscopy Colon: Some stool throughout the colon may interfere with division of small lesion Rectum: Normal No active bleeding Esophagus: Esophagitis, small ulceration at the GE junction biopsy was done Stomach: Large ulcer in the antrum leading to the pyloric channel biopsy was done Duodenum: Normal Assessment and Plan - Assessment (1) Syncope Code(s): R55 - Syncope and collapse Status: Acute (2) Hypotension Code(s): I95.9 - Hypotension, unspecified Status: Acute (3) GI bleed Code(s): K92.2 - Gastrointestinal hemorrhage, unspecified Status: Acute (4) Renal insufficiency Code(s): N28.9 - Disorder of kidney and ureter, unspecified Status: Acute (5) MR (mental retardation) Code(s): F79 - Unspecified intellectual disabilities Status: Acute (6) Esophagitis Code(s): K20.9 - Esophagitis, unspecified Status: Acute (7) Gastric ulcer Code(s): K25.9 - Gastric ulcer, unspecified as acute or chronic, without hemorrhage or perforation Status: Acute - Plan 62-year-old female with unknown PMH who was brought to the ER by EMS after syncopal event. Pt has h/o Mental Retardation w/ Cognitive Impairment, difficult to obtain history from patient. Per report, was waiting at bus stop when she fell out of her wheelchair onto the pavement, presumed LOC. Syncope: Likely due to hypotension, EMS noted BP 68/47, likely due to dehydration/hypovolemia. -CT Head/C-Spine w/ no acute findings, images reviewed. -Monitor on telemetry for possible arrhythmia -ACS ruled out with negative serial cardiac enzymes -Echocardiogram showed EF 5055% -Given IVF for hydration -monitor I/O -repeat labs show improvement -Symptoms resolved, no lightheadedness/dizziness/syncope throughout admission - WILL GET MRI OF CERVICALS -PT AND OT TO EVAL AND TREAT Hypotension: Transient, secondary to hypovolemia/dehydration compounded by anemia w/ GI Bleed. Afebrile and no leukocytosis to indicate sepsis. -S/p IVF w/ improvement -monitor BP closely -continue IVF for hydration -Much improved, BP stable GI Bleed: Hemoccult +, Hgb 9.5, baseline unknown -S/p 2 u pRBC transfusion -repeat Hgb 12.2 -monitor closely for bleeding. -Continue Protonix IV. -Gastroenterology Dr. Wilkins consulted, plans for EGD/colonoscopy today - HAD EGD AND COLONOSCOPY YESTERDAY 8- Acute Renal Insufficiency: Creatinine 1.36, no previous labs for comparison, baseline unknown. -U/a negative for UTI. -Give IVF for hydration -Avoid nephrotoxins -repeat labs show improvement, Cr 0.81, resolved Intellectual Disability: w/ Cognitive Impairment, appears to be at baseline -speech difficult to understand however pt answering questions appropriately. -patient reportedly lives with her sister -case management to assist with discharge planning Right knee pain: Acute on chronic, recent fall with ecchymosis to the anterior knee. -Knee x-ray reviewed, shows mild tricompartmental osteoarthritis; no acute findings -Ice packs and pain control as needed DVT Prophylaxis: teds/SCDs. Pharmacologic contraindication in light of GI Bleed MRI OF CERVICALS ABNORMAL DW DR RICHARD OF NEUROSURGERY WILL NEED TRANSFER TO [facility] PT AND OT DW NEUROSURGERY TRANSFER TO DR JACOB MORILLO [facility] AT [facility] WHEN ACCEPTED Code Status: FULL CODE Discussed Condition With: RN AND PT AND CM Discharge Planning: PROBABLY AT BASELINE HOPEFULLY HOME LATER TODAY (1) Syncope Qualifiers: Syncope type: unspecified Qualified Code(s): R55 - Syncope and collapse
[2017-10-07] MEDS: Senna/Docusate Sodium 8.6/50 MG Tablet PO SCH ×2 (12:01→20:13)
[2017-10-07] MEDS: Pantoprazole Inj 40 MG Vial IV.PUSH SCH ×2 (12:01→20:12)
--- NOTE | 2017-10-07 12:08 | MR ---
EXAM DATE: 10/07/2017 11:46 AM EDT AGE/SEX: 62 years / Female INDICATIONS: . Pt fell striking head. Abnormal CT scan. CLINICAL DATA: This is the patient's initial encounter. Patient reports that signs and symptoms have been present for 2 days and indicates a pain score of 3/10. MEDICAL/SURGICAL HISTORY: Gastrointestinal bleed. Hypotension. None. COMPARISON: No prior exams available for comparison. TECHNIQUE: Multiplanar, multisequence MRI examination of the cervical spine was performed without an d with 7 ml Gadavist (gadobutrol) contrast as a single exam dose. FINDINGS: Sagittal T1 and T2-weighted imaging demonstrates moderate straightening of the normal cervical curve. There are severely degenerated disc throughout the mid cervical spine. The T2-weighted images demonstrate severe spinal stenosis with abnormal T2 signal seen throughout the cervical cord extending from the mid body of C2 down to the superior aspect of the T1 vertebral body . In addition, the examination demonstrates a focal area of abnormal T2 signal which surrounds an are a of myelomalacia within the central aspect of the cord at the C4-5 level. Postcontrast imaging is pr ovided. The postcontrast images demonstrate some subtle, patchy enhancement along the dura and centra l aspect of the cord at this level but no definite discrete enhancing mass. Primary differential cons iderations would include cord edema secondary to the patient's severe spinal stenosis with an area of previous myelomalacia or contusion within the central cord. Axial imaging: C2-C3: There is desiccation of the disc. The thecal space and foramina are adequate. There is mild f acet arthritis bilaterally. C3-C4: There is desiccation of the disc. There is a small broad-based disc bulge with thickening of the posterior longitudinal ligament. The foramina appear adequate. There is mild flattening of the ve ntral aspect of the cord. C4-C5: There is a large central disc protrusion which effaces the ventral thecal sac. There is extru ded disc extending both superiorly and inferiorly from the disc space. This results in a severe spina l stenosis. There is flattening of the ventral aspect of the cord. There are edematous changes within the cord. The foramina on the right appears adequate. There is moderate bony foraminal narrowing on the left. Again noted is thickening of the posterior longitudinal ligament. C5-C6: There is a desiccated, degenerated disc with broad-based disc bulge. There is osteophytic rid ging from the vertebral endplates. This abuts the ventral aspect of the cord. There is flattening of the ventral aspect of the cord. There is disc bulge projecting into the lateral recess and encroachin g upon the base of the foramina bilaterally. There is moderate facet arthritis bilaterally. C6-C7: There is a degenerated disc with a small broad-based disc bulge. This effaces the ventral the jorge sac. There is some degree of encroachment of disc bulge on the lateral recess and base of the for bárbara on the right. The foramina on the left is adequate. There is moderate facet arthritis bilateral ly. C7-T1: The thecal space and neural foramina are adequate. No significant abnormality is seen. CONCLUSION: Grossly abnormal examination demonstrating edema within the cord extending from the mid body of C2 do wn to the superior endplate of T1. 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 There is subtle enhancement in t he epidural space and centrally within the cord at this level. I feel this is more than likely relate d to cord contusion from the severe stenosis however it is difficult to exclude a small mass as there is enhancement within the cord itself but this is felt significantly less likely. Electronically signed by: Aditya Clay MD 10/07/2017 12:07 PM EDT
[2017-10-07] MEDS ORDERED: Dexamethasone Inj 20 MG/5 ML Vial IV.PUSH ONE (12:14)
--- NOTE | 2017-10-07 14:01 | P.PNGI ---
Subjective Interval history: Pt denies any nausea, vomiting, abdominal pain. States no BM since GI procedures. She has minimal movement to arms and hands today, MRI noted, per Dr. aDvis he is trying to arrange transfer of pt to [facility]. Physical Exam Vital signs: Vital Signs 10/06/17 15:39 10/06/17 16:26 10/06/17 20:00 Temperature 98.0 F 99.6 F Pulse Rate 42 L 43 L 55 L Respiratory Rate 16 17 Blood Pressure 164/74 H 159/73 H Pulse Oximetry 10/07/17 00:00 10/07/17 04:00 10/07/17 07:48 Temperature 98.5 F 97.9 F Pulse Rate 54 L 47 L 45 L Respiratory Rate 18 16 Blood Pressure 168/69 H 151/63 H Pulse Oximetry 99 10/07/17 11:47 Temperature 97.5 F L Pulse Rate 49 L Respiratory Rate 16 Blood Pressure 179/74 H Pulse Oximetry 97 Intake & Output 10/06/17 10/07/17 10/07/17 18:59 06:59 18:59 Intake Total 1000 / 1000 Balance 1000 / 1000 Intake: IV 1000 / 1000 NS Inj 1,000 ML @ 100 mls/hr IV 1000 / 1000 .CONT .Q10H [facility] Rx#:[id number] Other: Date of Last Bowel Movement 10/06/17 10/06/17 - Constitutional no acute distress - Routine HEENT Exam Head: Present: normocephalic, atraumatic - Routine Respiratory Exam Absent: accessory muscle use - Routine Abdominal Exam Present: soft, normoactive bowel sounds. Absent: tenderness, distended - Routine Skin Exam Present: dry, warm - Routine Neurological Exam Present: alert minimal movement of BL arms and hands - Urinary Catheter Management Straight Cath placed during this visit: yes Reason for continuing: Not indwelling catheter Insertion date: 10/03/17 Insertion time: 18:35 Results - Labs CBC & Chem 7: 10/06/17 04:50 10/06/17 04:00 - Imaging Impressions Cervical Spine MRI 10/07/17 09:45 CONCLUSION: Grossly abnormal examination demonstrating edema within the cord extending from the mid body of C2 down to the superior endplate of T1. 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 There is subtle enhancement in the epidural space and centrally within the cord at this level. I feel this is more than likely related to cord contusion from the severe stenosis however it is difficult to exclude a small mass as there is enhancement within the cord itself but this is felt significantly less likely. - Procedures 10/06/2017: EGD/Colonoscopy Colon: Some stool throughout the colon may interfere with division of small lesion Rectum: Normal No active bleeding Esophagus: Esophagitis, small ulceration at the GE junction biopsy was done Stomach: Large ulcer in the antrum leading to the pyloric channel biopsy was done Duodenum: Normal Assessment and Plan - Plan - GI bleed/anemia, heme (+) stools, hgb on admission 9.5, syncopal episode, symptomatic- This is a 62-year-old female with unknown PMH who was brought to the ER by EMS after syncopal event. Patient has Cognitive Impairment, difficult to obtain history from patient, but able to answer simple questions with yes and no. Per report, pt is wheelchair bound, was waiting at bus stop when she fell out of her wheelchair onto the pavement, presumed LOC. On arrival she was hypotensive, hgb is 9.5, base line unknown, was found Hemoccult +. CT Head with no acute findings. CT C-spine with no acute fracture, severe chronic degenerative changes. CXR negative. Currently receiving blood, 2u pRBC ordered , PPI. Pt states she had colonoscopy 2 yrs ago. Endorses wt loss and dysphagia due to poor dentition. She denies nausea, vomiting, hematemesis, abd pain, hematochezia, melena, diarrhea or constipation. Colonoscopy: Some stool throughout the colon may interfere with division of small lesion. Rectum: Normal. No active bleeding EGD: Esophagus: Esophagitis, small ulceration at the GE junction biopsy was done. Stomach: Large ulcer in the antrum leading to the pyloric channel biopsy was done. Duodenum: Normal (10/07) H/H remains stable. Pt denies any GI symptoms. No BM since GI procedures. Pt having difficulty moving arms and hands today, MRI ordered, results per chart. Spoke with Dr. Leger who discussed case with neurosurgery and is trying to transfer pt to [facility] for further management Plan: Supportive care Cardiac diet Hemoccult on a yearly basis by primary care physician Repeat colonoscopy in one year Repeat EGD in 2 month to evaluate the ulcer Continue PPI Monitor H/H transfuse as needed Our service will sign off, pt planning to be transferred Have pt follow up with GI after DC Pt has been seen and examined by myself and Dr. Mccoy and this note is written on his behalf
--- NOTE | 2017-10-07 15:52 | P.DS ---
Date of admission: 10/03/17 20:18 Primary care physician: UNKNOWN Attending physician on discharge: Joseph Davis Anticipated date of discharge: 10/07/17 Brief History from admission: This is a 62-year-old female with unknown PMH who was brought to the ER by EMS after syncopal event. Pt has h/o Mental Retardation w/ Cognitive Impairment, difficult to obtain history from patient. Per report, pt is wheelchair bound, was waiting at bus stop when she fell out of her wheelchair onto the pavement, presumed LOC. She is able to tell me that she had dizziness prior to event. EMS noted BP 68/47, s/p IVF w/ improvement. On arrival, BP 75/42, HR 61, O2 sat 95% on RA, Afebrile. S/p IVF w/ repeat BP 105/63, HR 64. Hemoglobin 9.5, no previous labs for comparison. INR 1.1. Creatinine 1.36, no previous labs for comparison. Troponin negative. UA negative for UTI. CT Head with no acute findings. CT C-spine with no acute fracture, severe chronic degenerative changes. CXR negative. On exam, Hemoccult +. Dr. Wilkins consulted, recommended transfusion of 2u pRBC as pt's baseline Hgb unknown. DS: Diagnosis - Discharge Diagnosis (1) Syncope Status: Acute (2) Hypotension Status: Acute (3) GI bleed Status: Acute (4) Renal insufficiency Status: Acute (5) MR (mental retardation) Status: Chronic (6) Esophagitis Status: Acute (7) Gastric ulcer Status: Acute DS: Medications - Discharge Medications Prescriptions: levothyroxine [Synthroid] 50 mcg PO DAILY #30 tab pantoprazole [Protonix] 40 mg PO BID 30 Days #60 tab DS: Summary Hospital Course: This is a 62-year-old female with unknown PMH who was brought to the ER by EMS after syncopal event. Pt has h/o Mental Retardation w/ Cognitive Impairment, difficult to obtain history from patient. Per report, pt is wheelchair bound, was waiting at bus stop when she fell out of her wheelchair onto the pavement, presumed LOC. She is able to tell me that she had dizziness prior to event. EMS noted BP 68/47, s/p IVF w/ improvement. On arrival, BP 75/42, HR 61, O2 sat 95% on RA, Afebrile. S/p IVF w/ repeat BP 105/63, HR 64. Hemoglobin 9.5, no previous labs for comparison. INR 1.1. Creatinine 1.36, no previous labs for comparison. Troponin negative. UA negative for UTI. CT Head with no acute findings. CT C-spine with no acute fracture, severe chronic degenerative changes. CXR negative. On exam, Hemoccult +. Dr. Wilkins consulted, recommended transfusion of 2u pRBC as pt's baseline Hgb unknown. 8-11 Follow-up for anemia, GI bleed. Patient denies any abdominal pain or nausea/vomiting. She states she has been tolerating oral intake. No reported bowel movement overnight or today. Denies any lightheadedness or dizziness. Denies any chest pain shortness of breath. She states she ambulates with a walker. She reportedly lives with her sister. The patient has no other medical complaints at this time. 8-12 Follow-up for anemia, GI bleed. Patient denies any abdominal pain, nausea /vomiting, or diarrhea. She complains of diffuse right anterior knee pain. She states she fell a few days ago. She has bruising on the right anterior knee. She states she is still able to move the leg/knee. Denies any fevers or chills. Denies any other medical complaints at this time. 8-13 Follow-up for anemia, GI bleed. The patient reports continued right knee pain, however improving. She denies any nausea or vomiting. Denies any abdominal pain. Had multiple bowel movements after her bowel prep last night. Denies any other medical complaints at this time. Going for EGD/colonoscopy today. 8-14 had EGD AND COLONOSCOPY YESTERDAY SEE REPORTS NOT MOVING HANDS VERY WELL AT THIS TIME WILL GET PT AND OT TO EVAL AND WILL GET MRI OF NECK TO RULE OUT CORD COMPRESSION MRI ABNORMAL CONSULT DR RICHARD OF NEUROSURGERY HE WILL EVALUATE MAY NEED TRANSFER TO [facility] WILL START DECADRON IV ALREADY ON PROTONIX NEEDS TRANSFER TO [facility] FOR EVALUATION BY DR JACOB MORILLO OF NEUROSURGERY DR RICHARD ALREADY SPOKE TO HIM DIRECTLY - Time Spent with Patient Total time spent providing and/or coordinating discharge services: Greater than 30 minutes - Quality: VTE Deep Vein Thrombosis/Pulmonary Embolism Present on Admission: No Exam Vital signs: Vital Signs 10/06/17 16:26 10/06/17 20:00 10/07/17 00:00 Temperature 99.6 F 98.5 F Pulse Rate 43 L 55 L 54 L Respiratory Rate 17 18 Blood Pressure 159/73 H 168/69 H Pulse Oximetry 99 10/07/17 04:00 10/07/17 07:48 10/07/17 11:47 Temperature 97.9 F 97.5 F L Pulse Rate 47 L 45 L 49 L Respiratory Rate 16 16 Blood Pressure 151/63 H 179/74 H Pulse Oximetry 97 Intake & Output 10/06/17 10/07/17 10/07/17 18:59 06:59 18:59 Intake Total 1000 / 1000 Balance 1000 / 1000 Intake: IV 1000 / 1000 NS Inj 1,000 ML @ 100 mls/hr IV 1000 / 1000 .CONT .Q10H [facility] Rx#:[id number] Other: Date of Last Bowel Movement 10/06/17 10/06/17 Narrative: GENERAL: Well-nourished, well-developed intellectually disabled female patient in [facility]. SKIN: Warm and dry. No rash. HEENT: Normocephalic. Atraumatic. Bilateral amblyopia. Pupils equal and round. Mucous membranes pink and moist. CARDIOVASCULAR: Regular rate and rhythm. No murmur appreciated. RESPIRATORY: No accessory muscle use. Clear to auscultation. Breath sounds equal bilaterally. GASTROINTESTINAL: Abdomen soft, non-tender, nondistended. Normoactive bowel sounds x4. MUSCULOSKELETAL: No obvious deformities. Extremities without clubbing, cyanosis , or edema. Right anterior knee with ecchymosis, tender to palpation. NEUROLOGICAL: Awake and alert. No obvious cranial nerve deficits. Motor grossly within normal limits. Moving all extremities spontaneously. Speech difficult to understand at times. DOES NOT SEEM TO MOVE HER HANDS VERY WELL- HARD TO ASSESS DUE TO MENTAL STATUS/ DISABILITY Results Procedures completed during hospitalization: 10/06/2017: EGD/Colonoscopy Colon: Some stool throughout the colon may interfere with division of small lesion Rectum: Normal No active bleeding Esophagus: Esophagitis, small ulceration at the GE junction biopsy was done Stomach: Large ulcer in the antrum leading to the pyloric channel biopsy was done Duodenum: Normal Completed studies during hospitalization: Laboratory Results WBC 9.6 th/mm3 (4.0-11.0) 10/06/17 04:50 RBC 3.83 mil/mm3 (4.00-5.30) L 10/06/17 04:50 Hgb 11.8 gm/dL (11.6-15.3) 10/06/17 04:50 Hct 34.4 % (35.0-46.0) L 10/06/17 04:50 MCV 89.6 fL (80.0-100.0) 10/06/17 04:50 MCH 30.7 pg (27.0-34.0) 10/06/17 04:50 MCHC 34.3 % (32.0-36.0) 10/06/17 04:50 RDW 13.2 % (11.6-17.2) 10/06/17 04:50 Plt Count 275 th/mm3 (150-450) 10/06/17 04:50 MPV 8.3 fL (7.0-11.0) 10/06/17 04:50 Neut % (Auto) 72.9 % (16.0-70.0) H 10/06/17 04:50 Lymph % (Auto) 18.3 % (9.0-44.0) 10/06/17 04:50 [place] % (Auto) 5.3 % (0.0-8.0) 10/06/17 04:50 Eos % (Auto) 3.0 % (0.0-4.0) 10/06/17 04:50 Baso % (Auto) 0.5 % (0.0-2.0) 10/06/17 04:50 Neut # (Auto) 7.0 th/mm3 (1.8-7.7) 10/06/17 04:50 Lymph # (Auto) 1.8 th/mm3 (1.0-4.8) 10/06/17 04:50 [place] # (Auto) 0.5 th/mm3 (0.0-0.9) 10/06/17 04:50 Eos # (Auto) 0.3 th/mm3 (0.0-0.4) 10/06/17 04:50 Baso # (Auto) 0.1 th/mm3 (0.0-0.2) 10/06/17 04:50 WBC Differential . 10/06/17 04:50 Differential Comment Auto diff final 10/06/17 04:50 PT 11.1 sec (9.8-11.6) 10/03/17 18:28 INR 1.1 Ratio 10/03/17 18:28 APTT 24.6 sec (24.3-30.1) 10/03/17 18:28 Sodium 137 meq/L (136-145) 10/06/17 04:00 Potassium 4.0 meq/L (3.5-5.1) 10/06/17 04:00 Chloride 109 meq/L (98-107) H 10/06/17 04:00 Carbon Dioxide 19.9 meq/L (21.0-32.0) L 10/06/17 04:00 Anion Gap 8 meq/L (5-15) 10/06/17 04:00 BUN 10 mg/dL (7-18) 10/06/17 04:00 Creatinine 0.81 mg/dL (0.50-1.00) 10/06/17 04:00 Estimated GFR 71 mL/min (>89) L 10/06/17 04:00 Random Glucose 91 mg/dL (74-106) 10/06/17 04:00 Lactic Acid 1.0 mmol/L (0.4-2.0) 10/03/17 18:55 Calcium 8.0 mg/dL (8.5-10.1) L 10/06/17 04:00 Total Bilirubin 1.4 mg/dL (0.2-1.0) H 10/04/17 10:26 AST 23 U/L (15-37) 10/04/17 10:26 ALT 22 U/L (10-53) 10/04/17 10:26 Alkaline Phosphatase 49 U/L (45-117) 10/04/17 10:26 Troponin I Less than 0.02 ng/mL (0.02-0.05) L 10/04/17 10:26 Total Protein 6.9 g/dL (6.4-8.2) 10/04/17 10:26 Albumin 3.1 g/dL (3.4-5.0) L 10/04/17 10:26 TSH 6.920 uIU/mL (0.358-3.740) H 10/03/17 18:28 Urine Color Yellow (Yellw/Straw) 10/03/17 18:35 Urine Clarity Clear (Clear) 10/03/17 18:35 Urine pH 5.0 (5.0-8.5) 10/03/17 18:35 Ur Specific [place] 1.014 (1.002-1.035) 10/03/17 18:35 Urine Protein Negative mg/dL (Neg-Trace) 10/03/17 18:35 Urine Glucose (UA) Negative mg/dL (Negative) 10/03/17 18:35 Urine Ketones Negative mg/dL (Negative) 10/03/17 18:35 Urine Occult Blood Negative (Negative) 10/03/17 18:35 Urine Nitrate Negative (Negative) 10/03/17 18:35 Urine Bilirubin Negative (Negative) 10/03/17 18:35 Urine Urobilinogen Less than 2 mg/dL (Less than 2) 10/03/17 18:35 Ur Leukocyte Esterase Negative (Negative) 10/03/17 18:35 Hyaline Casts 7 /lpf (0-3) 10/03/17 18:35 Urine Mucus Few /lpf (Occasional) H 10/03/17 18:35 Micro UA Comment Culture not ind 10/03/17 18:35 Urine Culture Comments Culture not ind 10/03/17 18:35 Blood Type A Positive 10/03/17 20:23 Blood Type Recheck 10/03/17 20:23 Antibody Screen Negative 10/03/17 20:23 MTS Gel Crossmatch See Detail 10/03/17 23:45 Impressions Knee X-Ray 10/03/17 00:00 CONCLUSION: Mild tricompartmental osteoarthritis. No acute abnormality is identified. Cervical Spine CT 10/03/17 18:13 CONCLUSION: 1. No fracture or acute appearing subluxation seen of the cervical spine. 2. Severe chronic degenerative disc changes at C5/C6 with grade 1 retrolisthesis and mild to moderate spinal stenosis. 3. Generalized uncovertebral and facet osteoarthritis as described. Head CT 10/03/17 18:13 CONCLUSION: No acute intracranial abnormality. . Chest X-Ray 10/03/17 18:14 CONCLUSION: No acute cardiopulmonary disease demonstrated. Cervical Spine MRI 10/07/17 09:45 CONCLUSION: Grossly abnormal examination demonstrating edema within the cord extending from the mid body of C2 down to the superior endplate of T1. 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 There is subtle enhancement in the epidural space and centrally within the cord at this level. I feel this is more than likely related to cord contusion from the severe stenosis however it is difficult to exclude a small mass as there is enhancement within the cord itself but this is felt significantly less likely. Pending studies at discharge: Pending at discharge 10/06/17 08:49 Surgical [PTH] Routine - Impressions ITS Impressions Knee X-Ray 10/03/17 00:00 CONCLUSION: Mild tricompartmental osteoarthritis. No acute abnormality is identified. Cervical Spine CT 10/03/17 18:13 CONCLUSION: 1. No fracture or acute appearing subluxation seen of the cervical spine. 2. Severe chronic degenerative disc changes at C5/C6 with grade 1 retrolisthesis and mild to moderate spinal stenosis. 3. Generalized uncovertebral and facet osteoarthritis as described. Head CT 10/03/17 18:13 CONCLUSION: No acute intracranial abnormality. . Chest X-Ray 10/03/17 18:14 CONCLUSION: No acute cardiopulmonary disease demonstrated. Cervical Spine MRI 10/07/17 09:45 CONCLUSION: Grossly abnormal examination demonstrating edema within the cord extending from the mid body of C2 down to the superior endplate of T1. 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 There is subtle enhancement in the epidural space and centrally within the cord at this level. I feel this is more than likely related to cord contusion from the severe stenosis however it is difficult to exclude a small mass as there is enhancement within the cord itself but this is felt significantly less likely. Discharge Plan - Discharge Disposition Patient Disposition: 70 Transfer To Other Facility - Discharge Condition Condition: Stable - Discharge Order Discharge Orders: Discharge Order (Routine); Ordered 10/06/17 Ordered By: Nicole Strickland - Discharge Details Anticipated Discharge Date: 10/06/17 Discharge Comment: GI recommends repeat EGD in 2 months for evaluation of gastric ulcer. Repeat colonoscopy in 1 years. Take Protonix. - Physicians Team Primary Care Provider: UNKNOWN, Attending Provider: Joseph Davis Other Providers: Venessa Wilkins MD ; Braden Richard MD
--- NOTE | 2017-10-07 16:07 | P.CONNS ---
History of Present Illness Primary Care Provider: UNKNOWN Chief Complaint: Quadraparesis History of Present Illness: Ms. Mcneal is a 62 y/o female developmentally delayed who presented to the ED via EMS on 10/03/17 after having a syncopal episode while at the bus stop. EMS reports that she was hypotensive. On evaluation she was hemoccult positive and had an unrevealing GI workup. She was being prepared for discharge today , when she was noted to have quadraparesis. History is of limited confidence given patient's delayed cognition, but she denies having any weakness, numbness or coordination issues prior to her fall on 10/03/17. She uses a rolling walker with a seat to ambulate on account of chronic orthopedic issues with her right knee necessitating frequent stops. She was sitting on the walker seat when she had the presumed syncopal episode. CT of the cervical spine was obtained on her admission which demonstrates multi- level chronic degenerative changes (of note for operating planning purposes, the C2/3 facet is fused). MRI of the cervical spine obtained urgently the morning of 10/07/17 when her quadraparesis was first documented demonstrates a C4/5 disc herniation that extends rostral to the C4 vertebral body, resulting in severe spinal cord stenosis. She has T2 cord signal change that extends from C2 to C7, disproportionate to what one would expect from a spinal cord injury resulting from focal compression at C4/5. Enhanced T1 demonstrates patchy enhancement of the dura and faint enhancement that appears intramedullary. There is no focal expansion of the spinal cord at the level of enhancement, however given the extend of degenerative stenosis at the same level, it may be masking expansion that would occur from an intramedullary mass. Per RN report at bedside, she lives at home. She has a friend, Saul Connors ) who serves as her "life childcare administrator" and she has a sister, Sara Yanez ([phone]) who is significantly hearing impaired (TTYL phone) who serves as her power of [place] attorney. Review of Systems unobtainable due to mental status PMFSH - History History Provided By: Aviation Electrical Technician / EMT - Medical / Surgical Hx Neg / Unobtainable Medical Problems Denied: Unable to Obtain Surgical History: Unable to Obtain - Medical History Medical History: Medical History (Last Reviewed 08/14/18 @ 10:28 by Sandy Ortega) Medical history unknown Surgical history unknown - Tobacco History Second Hand Smoke Exposure: No Tobacco Use In Past 30 Days: No Smoking Status: Never smoker - Alcohol History How Often Do You Have a Drink Containing Alcohol: Never - Substance Use History Substance History: No History of Abuse - Travel History Recent Travel in the [place] Within the Last 8 Weeks: No Recent Travel Out of the Country Within the Last 8 Weeks: No - Immunization History Tetanus Immunization: Unable to Assess Hx Influenza Vaccine This Season: Unable to Assess Medications and Allergies Active Medications: Active Medications Acetaminophen (Tylenol) 650 mg PO Q4H PRN PRN Reason: headache/fever/pain1-4 Hydrocodone Bitart/Acetaminophen ([place] 5/325) 1 tab PO Q6H PRN PRN Reason: pain scale 5 to 10 Last Admin: 10/05/17 15:17 Dose: 1 tab Al Hydroxide/Mg Hydroxide (Milk Of Magnesia Liq) 30 ml PO Q12H PRN PRN Reason: Mild Constipation Bisacodyl (Dulcolax Supp) 10 mg RECTAL DAILY PRN PRN Reason: SEVERE CONSITIPATION Dexamethasone Sodium Phosphate (Decadron Inj) 4 mg IV.PUSH Q6HR [facility] Sodium Chloride (Ns Inj) 1,000 mls @ 100 mls/hr IV.CONT .Q10H [facility] Last Admin: 10/07/17 07:42 Dose: Not Given Lactulose (Lactulose Liq) 30 ml PO DAILY PRN PRN Reason: SEVERE CONSITIPATION Morphine Sulfate (Morphine Inj) 2 mg IV.PUSH Q3H PRN PRN Reason: BREAKTHROUGH PAIN Last Admin: 10/05/17 08:51 Dose: 2 mg Ondansetron HCl (Zofran Inj) 4 mg IV.PUSH Q6H PRN PRN Reason: NAUSEA OR VOMITING Pantoprazole Sodium (Protonix Inj) 40 mg IV.PUSH Q12H [facility] Last Admin: 10/07/17 12:01 Dose: 40 mg Senna/Docusate Sodium (Crissy-Colace) 1 tab PO BID [facility]AH Last Admin: 10/07/17 12:01 Dose: 1 tab Sennosides (Senokot) 17.2 mg PO Q12H PRN PRN Reason: Moderate Constipation Sodium Chloride (Ns Flush) 2 ml IV.FLUSH PRN PRN PRN Reason: FLUSH AFTER USING IV ACCESS Last Admin: 10/06/17 08:23 Dose: 2 ml Temazepam (Restoril) 15 mg PO HS PRN PRN Reason: INSOMNIA Last Admin: 10/06/17 20:22 Dose: 15 mg Allergies Allergy/AdvReac Type Severity Reaction Status Date / Time No Known Allergies Allergy Uncoded 09/28/15 11:41 Home Medications Medication Instructions Recorded Confirmed Type amlodipine 2.5 mg PO DAILY 10/04/17 10/04/17 History atorvastatin 20 mg PO DAILY 10/04/17 10/04/17 History diclofenac sodium 50 mg PO BID 10/04/17 10/04/17 History enalapril maleate 20 mg PO DAILY 10/04/17 10/04/17 History hydroxyzine HCl 25 mg PO DAILY 10/04/17 10/04/17 History meloxicam 15 mg PO DAILY 10/04/17 10/04/17 History Exam Vital signs: Vital Signs 10/06/17 16:26 10/06/17 20:00 10/07/17 00:00 Temperature 99.6 F 98.5 F Pulse Rate 43 L 55 L 54 L Respiratory Rate 17 18 Blood Pressure 159/73 H 168/69 H Pulse Oximetry 99 10/07/17 04:00 10/07/17 07:48 10/07/17 11:47 Temperature 97.9 F 97.5 F L Pulse Rate 47 L 45 L 49 L Respiratory Rate 16 16 Blood Pressure 151/63 H 179/74 H Pulse Oximetry 97 Intake & Output 10/06/17 10/07/17 10/07/17 18:59 06:59 18:59 Intake Total 1000 / 1000 Balance 1000 / 1000 Intake: IV 1000 / 1000 NS Inj 1,000 ML @ 100 mls/hr IV 1000 / 1000 .CONT .Q10H [facility] Rx#:[id number] Other: Date of Last Bowel Movement 10/06/17 10/06/17 Narrative: Opens eyes to voice Alert and oriented to self Baseline dysarthria Limited cooperation with examination Deltoid 4+/5 Triceps 2/5 Biceps 2/5 Oracle Erp Developer 1/5 Hand intrinsics 1/5 Iliopsoas 1/5 Quadriceps 0/5 Dorsiflexion 1/5 Plantarflexion 1/5 EHL 0/5 Unreliable sensory examination - Constitutional no acute distress - Routine HEENT Exam Head: Present: normocephalic, atraumatic ENT: Present: mucous membranes moist - Routine Neck Exam Present: supple - Routine Chest/Breast/Axilla Exam Chest wall: Absent: tenderness - Routine Respiratory Exam Absent: respiratory distress - Routine Cardiovascular Exam Present: RRR - Routine Abdominal Exam Present: soft - Routine Extremities Exam Absent: cyanosis - Routine Skin Exam Present: intact Results - Laboratory Findings CBC and BMP: 10/06/17 04:50 10/06/17 04:00 Abnormal lab findings: Abnormal Labs 10/03/17 10/03/17 10/03/17 18:28 18:28 18:28 RBC 3.13 L Hgb 9.5 L Hct 27.3 L Neut % (Auto) [place] % (Auto) 9.7 H Eos % (Auto) 6.0 H Neut # (Auto) Sodium 132 L Chloride Carbon Dioxide Creatinine 1.36 H Estimated GFR 39 L Random Glucose Calcium 8.1 L Total Bilirubin AST 13 L Alkaline Phosphatase 44 L Troponin I Less than 0.02 L Albumin TSH 6.920 H Urine Mucus MTS Gel Crossmatch 10/03/17 10/03/17 10/04/17 18:35 23:45 00:35 RBC Hgb Hct Neut % (Auto) [place] % (Auto) Eos % (Auto) Neut # (Auto) Sodium Chloride Carbon Dioxide Creatinine Estimated GFR Random Glucose Calcium Total Bilirubin AST Alkaline Phosphatase Troponin I Less than 0.02 L Albumin TSH Urine Mucus Few H MTS Gel Crossmatch See Detail 10/04/17 10/04/17 10/06/17 10:26 10:26 04:00 RBC Hgb Hct Neut % (Auto) 79.0 H [place] % (Auto) Eos % (Auto) Neut # (Auto) 8.3 H Sodium 133 L Chloride 109 H Carbon Dioxide 19.1 L 19.9 L Creatinine 1.03 H Estimated GFR 54 L 71 L Random Glucose 107 H Calcium 7.9 L 8.0 L Total Bilirubin 1.4 H AST Alkaline Phosphatase Troponin I Less than 0.02 L Albumin 3.1 L TSH Urine Mucus MTS Gel Crossmatch 10/06/17 04:50 RBC 3.83 L Hgb Hct 34.4 L Neut % (Auto) 72.9 H [place] % (Auto) Eos % (Auto) Neut # (Auto) Sodium Chloride Carbon Dioxide Creatinine Estimated GFR Random Glucose Calcium Total Bilirubin AST Alkaline Phosphatase Troponin I Albumin TSH Urine Mucus MTS Gel Crossmatch - Diagnostic Findings Additional findings: Imaging: CT of the cervical spine was obtained on her admission which demonstrates multi- level chronic degenerative changes (of note for operating planning purposes, the C2/3 facet is fused). MRI of the cervical spine obtained urgently the morning of 10/07/17 when her quadraparesis was first documented demonstrates a C4/5 disc herniation that extends rostral to the C4 vertebral body, resulting in severe spinal cord stenosis. She has T2 cord signal change that extends from C2 to C7, disproportionate to what one would expect from a spinal cord injury resulting from focal compression at C4/5. Enhanced T1 demonstrates patchy enhancement of the dura and faint enhancement that appears intramedullary. There is no focal expansion of the spinal cord at the level of enhancement, however given the extend of degenerative stenosis at the same level, it may be masking expansion that would occur from an intramedullary mass. Assessment and Plan - Assessment (1) Spinal cord injury Status: Acute - Plan Ms. Mcneal is a 62 y/o female who presents with a clinical syndrome consistent with severe spinal cord injury at C5. Her MRI of the cervical spine, however, demonstrates signal cord change that is disproportionate to what one would expect from a focal injury at C4/5. In addition, there is an unusual enhancement pattern that raises concern for an intramedullary lesion. Her clinical history, however, is inconsistent with an intrinsic spinal cord lesion (i.e. she denies progressive weakness or neurologic deficit; her quadriparesis was sudden in onset after her syncopal episode). Plan: Because of the complexity of her clinical situation, I recommend emergent transfer to a tertiary care facility for further evaluation and treatment. In the interim, dexamethasone 10 mg IV x1 followed by 4 mg q6h and augmentation of blood pressure (greater than 80) is warranted.
[2017-10-07] MEDS: Temazepam 15 MG Capsule PO PRN (20:20)
[2017-10-07] MEDS: Morphine Inj 4 MG/ML Vial IV.PUSH PRN (23:26)
[2017-10-08] MEDS: Sod Chloride 0.9% Inj 1,000 ML IV.CONT SCH (06:12)
== END 2017-10-08 05:20 | disposition short-term general hospital (02) ==
LOC: NEPC 18:01 → NEDA 20:18 → INTOOBSV 20:18 → NEPFCDU 22:02
PROVIDERS: ADMIT Hospitalist; ATTEND Hospitalist
PROC: COLONOS (2017-10-06 12:34)
PROC: PANENDO (2017-10-06 12:34)